=== PATIENT | male | born 1940 | race Caucasian/White ===

== ENCOUNTER 2020-01-18 22:01 | Emergency (ER) | payer MEDICARE, SELFPAY ==
--- NOTE | ~2020-01-18 | XR_ITS ---
EXAMINATION: XR chest 2V DATE: 01/18/2020 23:12 INDICATION: Right-sided chest pain. TECHNIQUE: PA and lateral views of the chest were obtained. COMPARISON: Chest radiograph dated 06/08/[address] abdomen and pelvis dated 12/03/2015 FINDINGS: Unchanged mild linear discoid atelectasis/scarring in the lingula and right middle lobe. No new airsp apoorva opacities, pulmonary edema, pleural effusion or pneumothorax. The cardiomediastinal silhouette is normal. Old healed left clavicle fracture. Relatively recent-appearing minimally displaced fracture of the anterior right ninth rib. IMPRESSION: 1. No acute cardiopulmonary disease. 2. Relatively recent-appearing anterior right ninth rib fracture. Reviewed, dictated and finalized at location A.
--- NOTE | 2020-01-18 22:04 | ECG_ITS ---
Measurements Intervals [place] Rate: 65 P: 54 MI: 220 QRS: -24 QRSD: 127 T: 60 QT: 376 QTc: 392 Interpretive Statements SINUS RHYTHM WITH FIRST DEGREE AV BLOCK INTRAVENTRICULAR CONDUCTION DELAY LEFT VENTRICULAR HYPERTROPHY WITH ST-T CHANGE INFERIOR INFARCT, AGE INDETERMINATE BORDERLINE T WAVE ABNORMALITY- LATERAL LEADS BASELINE WANDER- I, II, AVR, AVL, AVF, V4-V6 ABNORMAL ECG Electronically Signed On 01-19-2020 10:43:29 CDT by Denis Shin D.O.
[2020-01-18 22:06] VITALS: BP 190/87; PULSE 65; RESP 20; TEMP 36.4; O2SAT 98; O2SAT 99
[2020-01-18] MEDS: ASPIRIN 81 MG CHEWABLE TABLET 324 MG PO (22:31)
--- NOTE | 2020-01-18 22:32 | ED.CHESTPAIN ---
HPI - Chest Pain General Chief Complaint: Chest Pain Stated Complaint: irreg heart beat Time Seen by Provider: 01/18/20 22:16 Source: patient Mode of arrival: ambulatory Limitations: no limitations History of Present Illness HPI narrative: Patient is a 79-year-old male who presents to the emergency department with complaint of chest pain and palpitations. Patient had onset of right-sided chest pain that he states lasted only a few seconds and then subsided located in the right chest. Patient is unable to describe it any further than to state it was a pain . Patient is more concerned with the irregular heartbeat that he has been noticing. Patient states this is been going on for couple of months and was noted by his primary care physician on his last office visit. Patient states he has been referred to cardiology but his appointment has been put off due to the coronavirus pandemic. Patient states he feels his heart skipping beats at times. Patient denies any associated symptoms with the very brief episode of chest pain that he had. Patient has a remote history of coronary disease with stent placement. He denies any exertional symptoms or limitations and denies any chest pain or shortness of breath with activities. MD complaint: chest pain Pertinent past history: coronary artery disease Onset (ago): minute(s) Timing of current episode: now resolved (Lasted a couple of seconds) Onset: during rest Pain location: right chest Pain radiation: none Severity: mild Pain scale (0-10): 2 Quality: other ( pain ) Relieving factors: nothing Exacerbating factors: nothing Associated symptoms: palpitations Treatment prior to arrival: none Related Data Home Medications Medication Instructions Recorded Confirmed acetaminophen 500 mg capsule 500 mg PO Q6H PRN 10/31/19 lisinopril 20 mg tablet 20 mg PO DAILY 10/31/19 Allergies Allergy/AdvReac Type Severity Reaction Status Date / Time No Known Allergies Allergy Verified 01/18/20 22:15 Review of Systems Review of Systems: All systems reviewed & are unremarkable except as noted in HPI and below Cardiovascular: Cardiovascular: Reports chest pain at rest, Denies chest pain with activity, Denies diaphoresis, Reports palpitations and Denies dyspnea Respiratory: Respiratory: Denies cough and Denies dyspnea Gastrointestinal: Gastrointestinal: Denies nausea and Denies vomiting [facility] Past Medical History Medical History Chronic left hip pain Coronary artery disease Hyperlipidemia Hypertension Normal colonoscopy GERARD (obstructive sleep apnea) Surgical History Surgical History History of colonoscopy History of coronary artery stent placement History of hernia repair Social History Social History Smoking status: Former smoker Second hand tobacco smoke exposure: No Smoking end date: 09/17/1962 Alcohol intake: never Substance use: never Substance use type: does not use Gender identity (if verbalized by the patient): Male Exam Const: General: cooperative, no acute distress and alert Nutritional Appearance: well nourished Orientation/consciousness: patient oriented x3 Limitations: no limitations HENMT: Mouth: Yes lip normal and Yes moist mucous membranes Resp: Effort & Inspection: normal respiratory effort Auscultation: clear to auscultation bilaterally Cardio: Rate: regular rate Rhythm: regular rhythm GI: GI Palp: Yes Soft to palpation and No Tenderness to palpation present (GI) Auscultation: normal bowel sounds Skin: General skin exam: normal color and no rashes or lesions noted Neuro: General: patient oriented x3 Cognition (Neuro): normal cognition Speech: normal speech Extrem: General: normal to inspection, full ROM and no clubbing, cyanosis or edema Psych: Mental Status: men
[2020-01-18 22:37] LABS: Basophils Percent Auto 0.5 % (0.2-1.2); Eosinophils Absolute Auto 0.3 K/mm3 (0-0.3); Eosinophils Percent Auto 5.4 % (0-4.4); Hemoglobin 15.1 g/dL (14.0-18.0); Immature Granulocyte Absolute 0.02 K/mm3 (0.00-0.031); Immature Granulocyte Percent A 0.3 % (0-0.5); Lymphocytes Absolute Auto 2.16 K/mm3 (0.9-3.2); Lymphocytes Percent Auto 35.3 % (18.3-44.2); Mean Corpuscular HGB Conc 36.8 g/dl (32-36); Mean Corpuscular Hemoglobin 34.1 pg (26-34); Mean Corpuscular Volume 92.6 fl (80-100); Mean Platelet Volume 9.5 fl (7.4-10.4); Monocytes Absolute Auto 0.5 K/mm3 (0.1-0.6); Monocytes Percent Auto 7.5 % (2.6-8.5); Neutrophils Absolute Auto 3.1 K/mm3 (1.3-6.7); Platelet Count Result 130 k/mm3 (150-375); Red Blood Count 4.43 M/mm3 (4.6-6.20); Red Cell Distribution Width 12.3 % (11.5-14.5); White Blood Count 6.1 K/mm3 (4.5-10.0)
[2020-01-18 22:46] LABS: INR 0.9; Prothrombin Time 12.2 Seconds (11.1-14.7)
[2020-01-18 22:47] LABS: Partial Thromboplastin Time 25.1 SECONDS (22.3-36.8)
[2020-01-18 22:49] LABS: Blood Urea Nitrogen 18 mg/dL (9-20); Calcium 8.7 mg/dL (8.4-10.2); Carbon Dioxide 22 mmol/L (22-30); Chloride 106 mmol/L (98-107); Estimated CRCL calculation 56 ml/min; Estimated Glomerular Filt Rate > 60; Glucose 213 mg/dL (75-110); Magnesium 1.7 mg/dL (1.6-2.3); Potassium 3.8 mmol/L (3.4-5.0); Sodium 137 mmol/L (137-145)
[2020-01-18 23:01] LABS: Troponin I 0.022 ng/mL (0.000-0.034)
[2020-01-18 23:19] VITALS: BP 178/84; PULSE 60; RESP 20; O2SAT 96
[2020-01-19 00:26] VITALS: BP 154/79; PULSE 56; RESP 18; O2SAT 96
[2020-01-19 01:31] LABS: Troponin I 0.018 ng/mL (0.000-0.034)
[2020-01-19 01:50] VITALS: BP 146/72; PULSE 60; RESP 16; O2SAT 97
== END 2020-01-19 01:52 | disposition home or self-care (01) ==
PROVIDERS: Emergency Provider Emergency Medicine; PCP Family Medicine
DX: R07.89 Other chest pain (principal); I49.3 Ventricular premature depolarization; I25.10 Atherosclerotic heart disease of native coronary artery without angina pectoris; E78.5 Hyperlipidemia, unspecified; I10 Essential (primary) hypertension; G47.33 Obstructive sleep apnea (adult) (pediatric); Z95.5 Presence of coronary angioplasty implant and graft; Z87.891 Personal history of nicotine dependence; I44.0 Atrioventricular block, first degree; I45.9 Conduction disorder, unspecified; I51.7 Cardiomegaly; R94.31 Abnormal electrocardiogram [ECG] [EKG]
CPT/HCPCS: 36415; 71046; 80048; 83735; 84443; 84484; 85025; 85610; 85730; 93005; 99284; A9270

== ENCOUNTER 2020-02-04 09:46 | Outpatient (CLI) | payer MEDICARE, SELFPAY ==
--- NOTE | 2020-02-04 11:25 | EST_ITS ---
Patient Info Name: Shiva Parker Age: 79 years : 1940 Gender: Male Ht: 67 in Wt: 175 lbs BSA: 1.95 m2 BP: 141 / 81 mmHg Exam Date: 02/04/2020 11:31 AM Exam Location: [facility] Patient Status: Outpatient Admit Date: 02/04/2020 Staff Ordering Physician: Denis Shin DO Electric Motor Tester: Jay Jay Colindres RDCS, Attending Provider: Denis Shin DO Referring Physician: Kip CLARKE; Exercise Technologist: Jay Jay Colindres RDCS, RT Exercise Physician: Denis Shin DO Exam Type: CA stress echo Study Info Indications I23.8 - Other current complications following acute myocardial infarction Treadmill exercise stress echocardiogram is performed. Summary 1. 1. Negative Josh exercise stress test for ischemic ST changes by ECG criteria. 2. 2. Good functional capacity, achieving 9 METs of workload. 3. 3. Baseline hypertension. 4. 4. Appropriate HR response to exercise. 5. 5. Appropriate HR recovery at 1 minute post exercise. 6. 6. Negative stress echocardiogram for ischemia by wall motion analysis. 7. 7. Patient informed of the above results. Stress Echo Findings Left Ventricle Appropriate increase in LV endocardial thickening with systole. Appropriate augmentation of contractility with systole. No wall motion abnormality. Left Ventricle Normal LV systolic function. Mild inferior wall hypokinesis. Protocol: Josh Rest HR: 55 bpm Peak HR: 121 bpm Rest Sys BP: 141 mmHg Peak Sys BP: 208 mmHg Max Pred HR: 142 bpm % Max Pred HR: 85 % Target HR: 121 bpm Max RPP: 25,168 bpm*mmHg Termination Reason: Reached target heart rate or workload Cardiac Symptoms: Shortness of breath Total Time: 7 min : 24 sec Rest Browne BP: 81 mmHg Peak Browne BP: 89 mmHg Total METS: 9.5 Resting ECG Normal sinus rhythm. Sinus rhythm, first degree AV block, borderline T wave in anterolateral leads. Stress ECG No ST changes. Arrhythmias Intermittent PVC's at peak exercise. Report Signatures Stress ECG Echo
== END 2020-02-04 09:47 | disposition home or self-care (01) ==
PROVIDERS: PCP Family Medicine; Visit Provider Internal Medicine Cardiovascular Disease
DX: I25.10 Atherosclerotic heart disease of native coronary artery without angina pectoris (principal)
CPT/HCPCS: 93351

== ENCOUNTER 2020-09-21 09:15 | Outpatient (CLI) | payer MEDICARE, SELFPAY ==
--- NOTE | 2020-10-28 15:48 | WPDHOMESLEEP ---
Sleep Study - Home Unattended Date of Study: 09/21/20 Ordering Provider: Ebony Sosa MD Interpreting Physician: Polly Lackey MD Home Sleep Study Type: Apnea Link Air Height: 1.7 m Weight: 74.843 kg Body Mass Index: 25.8 Neck Circumference (inches): 15.4 [place]: 4 Reason for Sleep Study History of GERARD with a split night study12/03/2012; BMI was 27.4; AHI 18 with optimal pressure 11 cm; now has palpitations and excessive daytime sleepiness Sleep History Shiva Parker is a 80-year-old man with a history of obstructive sleep apnea in 2012 when his BMI was 27.4. He was coronary artery disease, OR and stent placed in 2005. He was referred by his primary care physician. Doctor Kip noted that the patient has palpitations and daytime somnolence with a history of loud snoring. He does not have trouble sleeping with a cold. He does not wake up gasping for breath at night. He frequently has breathing problems at night observed by others. He does not sweat excessively at night. He occasionally notices his heart pounding or beating irregularly at night. He does not fall asleep during the day, does not fall asleep involuntarily or while dry heaving, does not fall asleep while exerting physical effort. He does not have loss of muscle tone with strong emotion. He does not have daytime difficulties due to excessive sleepiness. He does not feel paralyzed on waking or falling asleep and does not have vivid dream like scenes upon awakening or falling asleep. He is not afraid to go to sleep. He does not have nightmares. He rarely remembers his dreams. He frequently has racing thoughts. He does not feel sad or depressed. He rarely has anxiety. He does not have muscular tension. He occasionally notices parts of his body jerking. He does not kick during the night. He occasionally has crawling and aching feelings in his legs at night. He rarely has leg pain during the night. He does not have morning jaw pain and does not grind his teeth during sleep. He rarely is bothered by pain during the day. He never is awakened by pain at night, rarely wakes up feeling stiff in the morning with sore achy muscles. He does not wake up with pain in the neck and spine. He has memory problems. Normal bedtime is 9:00 p.m. falling asleep within 15 minutes typically waking twice at night. He will roll over and go back to sleep. He stays awake about 15 minutes when he wakes up. He wakes in the morning at 5:00 a.m.. The weekend schedule is the same. He may stay in bed for 2 or 3 hours after waking. He does not take naps in the afternoon or evening. A short 10-15 minute nap is not refreshing. He is usually awakens feeling refreshed in the morning. Habits: Smoked tobacco years ago. Caffeine; 3 sodas a day. No alcohol or recreational drugs. [facility] Past Medical History Medical History (Updated 10/28/20 @ 16:12 by Polly Lackey MD) Arthritis BMI 25.0-25.9,adult Chronic left hip pain Coronary artery disease Hyperlipidemia Hypertension Normal colonoscopy GERARD (obstructive sleep apnea) (12/03/12) Osteoarthritis of hips, bilateral Surgical History Surgical History (Updated 10/28/20 @ 15:57 by Polly Lackey MD) History of cataract surgery History of colonoscopy History of coronary artery stent placement History of hernia repair Family History Family History Father Hypertension Sibling Hypertension Other Family history of cardiovascular disease Social History Social History Smoking status: Former smoker Second hand tobacco smoke exposure: No Smoking end date: 09/17/1962 Alcohol intake: never Substance use: never Substance use type: does not use Gender identity (if verbalized by the patient): Male Medications Home Medications Medication Instructions Recorded Confirmed Type metoprolol succinate 25 mg 12.5 mg PO
[2020-10-28 16:25] VITALS: BMI 25.8
== END 2020-09-21 09:16 | disposition home or self-care (01) ==
LOC: ANHCSM 09:16
PROVIDERS: PCP Physician Assistant; Visit Provider Family Medicine
DX: G47.33 Obstructive sleep apnea (adult) (pediatric) (principal); R94.31 Abnormal electrocardiogram [ECG] [EKG]; I10 Essential (primary) hypertension; G47.19 Other hypersomnia; I25.10 Atherosclerotic heart disease of native coronary artery without angina pectoris
CPT/HCPCS: 95806

== ENCOUNTER 2020-11-24 07:59 | Outpatient (CLI) | payer MEDICARE, SELFPAY ==
[2020-11-24 09:26] LABS: Basophils Percent Auto 0.7 % (0.2-1.2); Eosinophils Absolute Auto 0.3 K/mm3 (0-0.3); Eosinophils Percent Auto 5.8 % (0-4.4); Hematocrit 46.1 % (42.0-52.0); Hemoglobin 16.6 g/dL (14.0-18.0); Immature Granulocyte Absolute 0.03 K/mm3 (0.00-0.031); Immature Granulocyte Percent A 0.5 % (0-0.5); Lymphocytes Absolute Auto 1.49 K/mm3 (0.9-3.2); Lymphocytes Percent Auto 26.9 % (18.3-44.2); Mean Corpuscular Hemoglobin 34.2 pg (26-34); Mean Corpuscular Volume 95.1 fl (80-100); Mean Platelet Volume 9.4 fl (7.4-10.4); Monocytes Absolute Auto 0.4 K/mm3 (0.1-0.6); Monocytes Percent Auto 6.9 % (2.6-8.5); Neutrophils Absolute Auto 3.3 K/mm3 (1.3-6.7); Neutrophils Percent Auto 59.2 % (45.5-73.1); Platelet Count Result 140 k/mm3 (150-375); Red Blood Count 4.85 M/mm3 (4.6-6.20); Red Cell Distribution Width 12.1 % (11.5-14.5); White Blood Count 5.5 K/mm3 (4.5-10.0)
[2020-11-24 09:33] LABS: Urine Cotinine NEGATIVE
[2020-11-24 09:56] LABS: Albumin Level 4.5 g/dL (3.5-5.1); Estimated Glomerular Filt Rate > 60; Glucose 181 mg/dL (75-110)
[2020-11-24 11:24] LABS: Hemoglobin A1C 7.5 % (<5.7)
== END 2020-11-24 08:00 | disposition home or self-care (01) ==
PROVIDERS: PCP Physician Assistant; Visit Provider Orthopaedic Surgery
DX: Z01.818 Encounter for other preprocedural examination (principal); M16.12 Unilateral primary osteoarthritis, left hip; E11.65 Type 2 diabetes mellitus with hyperglycemia
CPT/HCPCS: 80307; 82040; 82565; 82947; 83036; 85025; 86850; 86900; 86901; 87081

== ENCOUNTER 2021-03-02 06:37 | Outpatient (CLI) | payer MEDICARE, SELFPAY ==
[2021-03-02 07:57] LABS: Hemoglobin A1C 6.3 % (<5.7)
[2021-03-02 08:01] LABS: Anion Gap 9 mmol/L (8-16); Blood Urea Nitrogen 29 mg/dL (9-20); Calcium 9.3 mg/dL (8.4-10.2); Carbon Dioxide 25 mmol/L (22-30); Chloride 107 mmol/L (98-107); Estimated Glomerular Filt Rate > 60; Glucose 130 mg/dL (75-110); Potassium 4.8 mmol/L (3.4-5.0); Sodium 141 mmol/L (137-145)
== END 2021-03-02 06:38 | disposition home or self-care (01) ==
PROVIDERS: PCP Physician Assistant; Visit Provider Physician Assistant
DX: E11.65 Type 2 diabetes mellitus with hyperglycemia (principal)
CPT/HCPCS: 36415; 80048; 83036

== ENCOUNTER 2021-03-02 13:32 | Outpatient (CLI) | payer MEDICARE, SELFPAY ==
--- NOTE | 2021-03-02 13:46 | ECHO_ITS ---
Patient Info Name: Shiva Parker Age: 80 years : 1940 Gender: Male Ht: 67 in Wt: 156 lbs BSA: 1.84 m2 HR: 64 bpm BP: 139 / 72 mmHg Heart Rhythm: Sinus Rhythm Exam Date: 03/02/2021 2:03 PM Exam Location: [facility] Patient Status: Outpatient Admit Date: 03/02/2021 Staff Ordering Physician: Denis Shin DO Photographic Equipment Technician: Caitlin Quinones RDCS Attending Provider: Denis Shin DO Referring Physician: Kip CLARKE; Exam Type: CA echo doppler color flow Study Info Indications I73.9 - Peripheral vascular disease, unspecified Complete two-dimensional, color flow and Doppler transthoracic echocardiogram is performed. Summary 1. Complete two-dimensional, color flow and Doppler transthoracic echocardiogram is performed. 2. Left ventricular chamber dimension is normal. 3. Left ventricular systolic function is normal, estimated at 65-70%. 4. There is mildly increased left ventricular wall thickness. 5. The left ventricular diastolic function is grade I diastolic dysfunction. 6. E/e' 5 is not elevated. 7. Left atrial chamber dimension is mildly enlarged. 8. There is trace aortic valve regurgitation. 9. There is trace mitral valve regurgitation. 10. There is trace tricuspid valve regurgitation. 11. No pulmonary hypertension, estimated pulmonary arterial systolic pressure is 27 mmHg. 12. There is trace pulmonic regurgitation. Left Ventricle E/e' 5 is not elevated. Left ventricular chamber dimension is normal. Left ventricular systolic function is normal, estimated at 65-70%. There is mildly increased left ventricular wall thickness. The left ventricular diastolic function is grade I diastolic dysfunction. Right Ventricle Right ventricular systolic function is normal and with normal TAPSE 1.9 cm. Right ventricular chamber dimension is normal. Left Atria Left atrial chamber dimension is mildly enlarged. Right Atria Right atrial chamber dimension is normal. Aortic Valve The aortic valve is trileaflet. There is no aortic valve stenosis. There is trace aortic valve regurgitation. Pulmonic Valve There is trace pulmonic regurgitation. Mitral Valve There is no mitral valve stenosis. There is trace mitral valve regurgitation. Tricuspid Valve There is trace tricuspid valve regurgitation. No pulmonary hypertension, estimated pulmonary arterial systolic pressure is 27 mmHg. Pericardium/Pleural There is no pericardial effusion. Inferior Vena Cava Normal inferior vena cava with >50% collapse upon inspiration consistent with normal right atrial pressure, 5 mmHg. Aorta The aortic root size at the sinus of Valsalva is normal. Left Ventricular Outflow Tract Name Value Normal LVOT 2D LVOT Diameter 2.1 cm LVOT Doppler LVOT Peak Gradient 4 mmHg LVOT Mean Gradient 2 mmHg LVOT VTI 22 cm LVOT VTI/AV VTI Ratio 0.8 LVOT Stroke Volume 77 ml LVOT CO 3.8 l/min LVOT CI 2.1 l/
== END 2021-03-02 13:33 | disposition home or self-care (01) ==
PROVIDERS: PCP Physician Assistant; Visit Provider Internal Medicine Cardiovascular Disease
DX: I73.9 Peripheral vascular disease, unspecified (principal); I10 Essential (primary) hypertension
CPT/HCPCS: 36415; 80048; 83036; 93306

== ENCOUNTER 2021-03-06 03:18 | Emergency (ER) | payer MEDICARE, SELFPAY ==
[2021-03-06 03:24] VITALS: BP 150/80; PULSE 59; RESP 16; TEMP 36.7; O2SAT 99
[2021-03-06] MEDS: DACRIOSE EYE IRRIGATION 118 ML BOTTLE LEFT EYE (04:04)
[2021-03-06] MEDS: TETRACAINE HCL 0.5% OPHTH SOLN 4 ML BTL 1 DROP LEFT EYE (04:05)
[2021-03-06] MEDS: FLUORESCEIN SOD 1 MG/STRIP LEFT EYE (04:05)
--- NOTE | 2021-03-06 04:09 | ED.EYEPROB ---
HPI - Eye Problem General Chief complaint: Eye Problems Stated complaint: Left eye pain Time Seen by Provider: 03/06/21 03:25 History of Present Illness HPI Narrative: Patient is a 80-year-old male who presents ER with left eye pain. He was grinding door way earlier in the day when something got in his eye. He has had irritation since then with mild blurring of vision. No drainage. Mild tearing. Related Data Allergies Allergy/AdvReac Type Severity Reaction Status Date / Time No Known Allergies Allergy Verified 02/10/21 10:18 Review of Systems Eyes: Eyes: Reports change in vision and Denies photophobia ENT: Denies nasal congestion and Denies sore throat PMFSH Past Medical History Medical History Arthritis BMI 25.0-25.9,adult Chronic left hip pain Coronary artery disease Hyperlipidemia Hypertension Normal colonoscopy GERARD (obstructive sleep apnea) (12/03/12) Osteoarthritis of hips, bilateral Surgical History Surgical History History of cataract surgery History of colonoscopy History of coronary artery stent placement History of hernia repair Family History Family History Father Hypertension Sibling Hypertension Other Family history of cardiovascular disease Social History Social History Smoking packs per day: 1 Smoking cigarettes per day: 20.0 Years smoked: 10 Smoking pack-years: 10.00 Smoking status: Former smoker Tobacco type: cigarettes Second hand tobacco smoke exposure: No Smoking end date: 09/17/1962 Additional smoking assessment comments: DENIES ANY FORM OF TOBACCO USE Alcohol intake: never Substance use: never Substance use type: does not use Gender identity (if verbalized by the patient): Male Spiritual care concerns: No Exam Narrative: Exam Narrative: GENERAL: Well-appearing, well-nourished, and in no acute distress. HEAD: Normocephalic, atraumatic. EYES: PERRL and EOMI. left eye viewed with magnification with small metallic foreign body in central aspect of cornea. ENT: Mucous membranes moist. NEURO: Alert and oriented x3. PSYCH: Normal mood and affect. Course Course Emergency Course: Foreign body removed. Small abrasion left. Discharge with topical antibiotic. Vital Signs Vital signs: Vital Signs Temperature 98.0 F 03/06/21 03:24 Pulse Rate 59 L 03/06/21 03:24 Respiratory Rate 16 03/06/21 03:24 Blood Pressure 150/80 H 03/06/21 03:24 Pulse Oximetry 99 03/06/21 03:24 Temperature 98.0 F 03/06/21 03:24 Pulse Rate 59 L 03/06/21 03:24 Respiratory Rate 16 03/06/21 03:24 Blood Pressure 150/80 H 03/06/21 03:24 Pulse Oximetry 99 03/06/21 03:24 Procedures FB Removal Eye Foreign Body #1: Foreign Body Removal Date: 03/06/21 Foreign Body Removal Time: 04:00 Time Out performed: No Location: eye (L) Topical anesthetic used: tetracaine Foreign body: metal Evidence of corneal penetration: No Technique: syringe and eye wash bottle Procedure performed under: direct visualization with magnification and slit-lamp Post-procedure medication: ophthalmic antibiotic Patient tolerated procedure: well and no complications Discharge Plan Discharge Clinical Impression: Eye foreign body, Abrasion, corneal Patient Disposition: Home, Self-Care Condition: Stable Instructions: Antibiotic Form, Corneal Abrasion (ED) Additional Instructions: Apply the topical antibiotic to prevent infection. Return the ER if you have increased pain, you cannot see, you have additional concerns. Prescriptions: New erythromycin 5 mg/gram (0.5 %) ointment 0.5 inch EACH EYE QID Qty: 1 RF: 0 No Action metoprolol succinate 25 mg tablet
[2021-03-06 04:22] VITALS: BP 142/76; PULSE 62; RESP 19; O2SAT 100
== END 2021-03-06 04:24 | disposition home or self-care (01) ==
PROVIDERS: Emergency Provider Emergency Medicine; PCP Physician Assistant
DX: T15.02XA Foreign body in cornea, left eye, initial encounter (principal); I25.10 Atherosclerotic heart disease of native coronary artery without angina pectoris; E78.5 Hyperlipidemia, unspecified; I10 Essential (primary) hypertension; G47.33 Obstructive sleep apnea (adult) (pediatric); M16.0 Bilateral primary osteoarthritis of hip; Z98.49 Cataract extraction status, unspecified eye; Z95.5 Presence of coronary angioplasty implant and graft; Z87.891 Personal history of nicotine dependence; W31.1XXA Contact with metalworking machines, initial encounter
CPT/HCPCS: 99283; A9270

== ENCOUNTER 2021-08-23 09:50 | Outpatient (CLI) | payer MEDICARE, SELFPAY ==
--- NOTE | 2021-09-12 17:27 | WPDSLEEPSTUD ---
Sleep Study Date of Study: 08/23/21 <Sarah Shaver DO - Last Filed: 09/12/21 17:53> Ordering Provider: Denis Shin DO <Sarah Shaver, DO - Last Filed: 09/12/21 17:53> Interpreting Physician: Sarah Shaver DO <Sarah Shaver DO - Last Filed: 09/12/21 17:53> Sleep Study Type: CPAP Titration <Sarah Shaver DO - Last Filed: 09/12/21 17:53> Height: 1.7 m <Sarah Shaver DO - Last Filed: 09/12/21 17:53> Weight: 74.843 kg <Sarah Shaver DO - Last Filed: 09/12/21 17:53> Body Mass Index: 25.8 <Sarah Shaver DO - Last Filed: 09/12/21 17:53> Neck Circumference (inches): 15.5 <Sarah Shaver DO - Last Filed: 09/12/21 17:53> [place]: 1 <Sarah Shaevr DO - Last Filed: 09/12/21 17:53> Reason for Sleep Study The patient had a HSAT on 09/21/20 that showed an AHI of 14 with Дмитрий-Mckeon respirations present on 7% of the study. <Sarah Shaver DO - Last Filed: 09/12/21 17:53> Sleep History Shiva Parker is a 81-year-old man with a history of obstructive sleep apnea in 2012 when his BMI was 27.4. He was coronary artery disease, ID and stent placed in 2005. He was referred by his primary care physician. Dr. Shin noted that the patient has palpitations and daytime somnolence with a history of loud snoring. He does not have trouble sleeping with a cold. He does not wake up gasping for breath at night. He frequently has breathing problems at night observed by others. He does not sweat excessively at night. He occasionally notices his heart pounding or beating irregularly at night. He does not fall asleep during the day, does not fall asleep involuntarily or while dry heaving, does not fall asleep while exerting physical effort. He does not have loss of muscle tone with strong emotion. He does not have daytime difficulties due to excessive sleepiness. He does not feel paralyzed on waking or falling asleep and does not have vivid dream like scenes upon awakening or falling asleep. He is not afraid to go to sleep. He does not have nightmares. He rarely remembers his dreams. He frequently has racing thoughts. He does not feel sad or depressed. He rarely has anxiety. He does not have muscular tension. He occasionally notices parts of his body jerking. He does not kick during the night. He occasionally has crawling and aching feelings in his legs at night. He rarely has leg pain during the night. He does not have morning jaw pain and does not grind his teeth during sleep. He rarely is bothered by pain during the day. He never is awakened by pain at night, rarely wakes up feeling stiff in the morning with sore achy muscles. He does not wake up with pain in the neck and spine. He has memory problems. Normal bedtime is 9:00 p.m. falling asleep within 15 minutes typically waking twice at night. He will roll over and go back to sleep. He stays awake about 15 minutes when he wakes up. He wakes in the morning at 5:00 a.m.. The weekend schedule is the same. He may stay in bed for 2 or 3 hours after waking. He does not take naps in the afternoon or evening. A short 10-15 minute nap is not refreshing. He is usually awakens feeling refreshed in the morning. Habits: Smoked tobacco years ago. Caffeine; 3 sodas a day. No alcohol or recreational drugs. <Sarah Shaver DO - Last Filed: 09/12/21 17:53> [facility] Past Medical History Medical History: Medical History (Updated 09/01/21 @ 21:53 by Ananya Morales MD) Arthritis BMI 25.0-25.9,adult Chronic left hip pain Coronary artery disease Erectile dysfunction Hyperlipidemia Hypertension Normal colonoscopy GERARD (obstructive sleep apnea) (12/03/12) Osteoarthritis of hips, bilateral <Sarah Shaver DO - Last Filed: 09/12/21 17:53> Surgical History Surgical History: Surgical History History o
[2021-09-12 17:45] VITALS: BMI 25.8
== END 2021-08-24 06:32 | disposition home or self-care (01) ==
LOC: ANHCSM 09:51
PROVIDERS: Visit Provider Internal Medicine Cardiovascular Disease
DX: G47.33 Obstructive sleep apnea (adult) (pediatric) (principal)
CPT/HCPCS: 95811

== ENCOUNTER 2021-09-07 07:41 | Outpatient (CLI) | payer MEDICARE, SELFPAY ==
[2021-09-07 08:30] LABS: Hematocrit 43.9 % (42.0-52.0); Hemoglobin 15.6 g/dL (14.0-18.0); Mean Corpuscular HGB Conc 35.5 g/dl (32-36); Mean Corpuscular Hemoglobin 34.6 pg (26-34); Mean Corpuscular Volume 97.3 fl (80-100); Mean Platelet Volume 9.6 fl (7.4-10.4); Platelet Count Result 121 k/mm3 (150-375); Red Blood Count 4.51 M/mm3 (4.6-6.20); Red Cell Distribution Width 12.3 % (11.5-14.5); White Blood Count 5.8 K/mm3 (4.5-10.0)
[2021-09-07 08:39] LABS: Cholesterol 147 mg/dL (0-200); HDL Direct 44 mg/dL; Triglycerides 133 mg/dL (<150)
[2021-09-07 08:43] LABS: Alanine Aminotransferase 20 U/L (4-50); Albumin Level 4.6 g/dL (3.5-5.1); Alkaline Phosphatase 67 U/L (38-126); Anion Gap 7 mmol/L (8-16); Aspartate Amino Transferase 26 U/L (17-59); Bilirubin,Total 0.8 mg/dL (0.2-1.3); Blood Urea Nitrogen 26 mg/dL (9-20); Calcium 9.6 mg/dL (8.4-10.2); Carbon Dioxide 27 mmol/L (22-30); Chloride 101 mmol/L (98-107); Estimated Glomerular Filt Rate 58; Glucose 133 mg/dL (65-110); Potassium 4.5 mmol/L (3.4-5.0); Sodium 135 mmol/L (137-145)
[2021-09-07 08:51] LABS: LDL Cholesterol Direct 69 mg/dL
[2021-09-07 09:11] LABS: Prostate Specific Antigen 2.9 ng/mL (< OR = 4.0)
[2021-09-07 09:47] LABS: Hemoglobin A1C 6.2 % (<5.7)
[2021-09-07 10:06] LABS: Creatinine Urine 134.3 mg/dL
[2021-09-07 10:09] LABS: Microalbumin Urine Random 72.5 mg/L (0-16.7)
== END 2021-09-07 07:42 | disposition home or self-care (01) ==
PROVIDERS: PCP Family Medicine; Visit Provider Internal Medicine Cardiovascular Disease
DX: R53.83 Other fatigue (principal); E78.5 Hyperlipidemia, unspecified; E11.9 Type 2 diabetes mellitus without complications; Z12.5 Encounter for screening for malignant neoplasm of prostate; E11.65 Type 2 diabetes mellitus with hyperglycemia; E03.9 Hypothyroidism, unspecified
CPT/HCPCS: 36415; 80053; 80061; 82043; 83036; 84153; 84443; 85027; G0103

== ENCOUNTER 2021-09-26 09:22 | Outpatient (CLI) | payer MEDICARE, SELFPAY ==
--- NOTE | 2021-09-26 10:37 | ECG_ITS ---
Measurements Intervals [place] Rate: 64 P: -30 NJ: 139 QRS: -20 QRSD: 113 T: 104 QT: 380 QTc: 393 Interpretive Statements SINUS RHYTHM VENTRICULAR PREMATURE COMPLEXES LEFT VENTRICULAR HYPERTROPHY AND ST-T CHANGE CONSIDER INFERIOR INFARCT, AGE INDETERMINATE BASELINE ARTIFACT- I, II, III, AVR, AVL, AVF ABNORMAL ECG Electronically Signed On 09-26-2021 11:45:57 SUPERINTENDENT RECREATION by Denis Shin D.O.
[2021-09-26 11:30] LABS: Basophils Percent Auto 0.5 % (0.2-1.2); Eosinophils Absolute Auto 0.4 K/mm3 (0-0.3); Eosinophils Percent Auto 5.6 % (0-4.4); Hematocrit 45.5 % (42.0-52.0); Hemoglobin 16.4 g/dL (14.0-18.0); Immature Granulocyte Absolute 0.03 K/mm3 (0.00-0.031); Immature Granulocyte Percent A 0.4 % (0-0.5); Lymphocytes Absolute Auto 1.73 K/mm3 (0.9-3.2); Lymphocytes Percent Auto 21.8 % (18.3-44.2); Mean Corpuscular Volume 94.4 fl (80-100); Mean Platelet Volume 9.3 fl (7.4-10.4); Monocytes Absolute Auto 0.5 K/mm3 (0.1-0.6); Monocytes Percent Auto 5.8 % (2.6-8.5); Neutrophils Absolute Auto 5.2 K/mm3 (1.3-6.7); Neutrophils Percent Auto 65.9 % (45.5-73.1); Platelet Count Result 140 k/mm3 (150-375); Red Blood Count 4.82 M/mm3 (4.6-6.20); Red Cell Distribution Width 11.8 % (11.5-14.5); White Blood Count 7.9 K/mm3 (4.5-10.0)
[2021-09-26 11:39] LABS: Urine Cotinine NEGATIVE
== END 2021-09-26 09:23 | disposition home or self-care (01) ==
LOC: ANHSURGERY 09:27
PROVIDERS: PCP Family Medicine; Visit Provider Orthopaedic Surgery
DX: M16.12 Unilateral primary osteoarthritis, left hip (principal); Z01.818 Encounter for other preprocedural examination; R94.31 Abnormal electrocardiogram [ECG] [EKG]
CPT/HCPCS: 80307; 85025; 87081; 93005

== ENCOUNTER 2021-10-10 00:46 | Day surgery (SDC) | payer MEDICARE, SELFPAY ==
[2021-09-26 10:03] VITALS: BP 156/77; PULSE 68; RESP 18; TEMP 36.9; O2SAT 99; BMI 25.0
--- NOTE | 2021-09-26 10:15 | PC.NURSE ---
Report to the Outpatient Waiting Room, entrance under the green pavilion located off [facility], at time ___6:00AM____ on date __10/10/21 . OR Time: ___7:30AM . - You and your visitor will be asked a series of questions to screen for COVID 19 for your protection. - A mask is required within the hospital. - Only one visitor is allowed at this time. Patient visitors will be guided where to wait when not with patient. Preoperative COVID Testing Requirements: No COVID Test needed if: (proof is required; if not received patient will have Rapid Test prior to entry) - Patient has received COVID Vaccine at least 14 days prior to procedure date or - Patient has positive COVID test result within last 90 days of surgery date. COVID Test needed if above criteria is not met If not COVID vaccinated a COVID test must be conducted within 72 hours of surgery and patient is asked to isolate self from time of testing until procedure. You will go to the [facility] for your COVID testing. The [facility] is located at the corner of [address] [facility]. You will only be called if COVID results are positive and your surgeon may reschedule your elective surgery date. Patients may have clear liquids (water, carbonated beverages, clear teas, apple juice) until 3 hours prior to surgery with a maximum of 20 ounces. - No food from midnight until time of surgery - Infants may have breast milk until 4 hours before surgery, infant formula 6 hours prior to surgery. - Children will be allowed to drink immediately following surgery. If applicable, please bring a bottle or sippy cup to assist with drinking. Juice, water, soda, and popsicles are readily available. For infants on formula, please bring formula the day of surgery. Pacifiers are allowed. Take the following medications with a SIP of water the morning of surgery: METOPROLOL Medications to discontinue per physician NONE Date to take last dose Please no make-up, nail spanish, hairspray, perfume, deodorant, or body powder the day of surgery. No jewelry (including any body piercings) or valuables the day of surgery, leave them at home. Please take a shower or bath the night before, or the morning of, surgery with an antibacterial soap. Wear comfortable, loose fitting clothing. Children are encouraged to wear pajamas. - Jewelry must be removed prior to entering the operating room. Rings and piercings that are not removed may be cut off. - The hospital will not accept responsibility for valuables. - Please leave all valuables, including medications, at home the day of surgery. If you are going home after surgery, a licensed xm1 tank driver must drive you home. - NO public transportation without another adult. - We recommend that an adult stay with you for 24 hours following discharge. - We also recommend that you do not drive, make important decision, drink alcoholic beverages, or take any drugs that were not prescribed by your health care provider for at least 24 hours after your discharge time. For Pediatric surgeries, we recommend two adults accompany the child home (only one inside the building at this time). Follow any additional instructions given to you from your surgeon. Telephone instructions given to ____PATIENT and asked if any additional questions and then verbalized understanding. Patient advised to call surgeon office or pre surgery nurse liaison [phone] if any additional questions.
--- NOTE | 2021-10-07 15:15 | WPDANESEPPF ---
Anes - Initial Pre Proc Eval Procedure: Operation Date: 10/10/21 07:30 Proposed Procedures p Left Total Hip Arthroplasty, Anterior Approach - Manuelito Moise MD Date/Time: 10/07/21 15:15 Surgeon: Manuelito Moise MD Pre Op Diagnosis: O A Left Hip Patient Data Age: 81 Gender: M Height: 1.7 m Weight: 72.4 kg Last Vital Signs Temp 36.9 C 09/26/21 10:03 Pulse 68 09/26/21 10:03 Resp 18 09/26/21 10:03 BP 156/77 H 09/26/21 10:03 Pulse Ox 99 09/26/21 10:03 Allergies Allergy/AdvReac Type Severity Reaction Status Date / Time No Known Allergies Allergy Verified 10/10/21 11:49 Home Medications Medication Instructions Recorded Confirmed Type metformin 500 mg tablet,extended 500 mg PO BID #180 tablet 11/29/20 10/10/21 Rx release 24 hr blood sugar diagnostic #50 ea 09/01/21 10/10/21 Rx blood-glucose meter #1 ea 09/01/21 10/10/21 Rx lancets #100 ea 09/01/21 10/10/21 Rx metoprolol succinate 25 mg 12.5 mg PO QAM tablet 09/01/21 10/10/21 History tablet,extended release 24 hr lisinopril [Zestril] 20 mg PO QAM 09/26/21 10/10/21 History lovastatin 40 mg PO QPM 09/26/21 10/10/21 History nabumetone 500 mg PO BID 09/26/21 10/10/21 History rivaroxaban 10 mg tablet 10 mg PO DAILY #14 tablet 09/27/21 10/10/21 Rx hydrocodone-acetaminophen 1 tablet PO Q6H PRN #21 tablet 10/11/21 Rx Other studies: Exam Date: 03/02/2021 2:03 PM Exam Location: [facility] Pulmonary Patient Status: Outpatient Admit Date: 03/02/2021 Staff Ordering Physician: Denis Shin DO Manager Plant: Caitlin Quinones RDCS Attending Provider: Denis Shin DO Referring Physician: Kip CLARKE; Exam Type: CA echo doppler color flow Study Info Indications I73.9 - Peripheral vascular disease, unspecified Complete two-dimensional, color flow and Doppler transthoracic echocardiogram is performed. Summary 1. Complete two-dimensional, color flow and Doppler transthoracic echocardiogram is performed. 2. Left ventricular chamber dimension is normal. 3. Left ventricular systolic function is normal, estimated at 65-70%. 4. There is mildly increased left ventricular wall thickness. 5. The left ventricular diastolic function is grade I diastolic dysfunction. 6. E/e' 5 is not elevated. 7. Left atrial chamber dimension is mildly enlarged. 8. There is trace aortic valve regurgitation. 9. There is trace mitral valve regurgitation. 10. There is trace tricuspid valve regurgitation. 11. No pulmonary hypertension, estimated pulmonary arterial systolic pressure is 27 mmHg. 12. There is trace pulmonic regurgitation. Patient hx anesthesia problems: none Family hx anesthesia problems: none Results Review: All pre-operative results and documents have been reviewed as part of the pre-operative evaluation. [facility] Past Medical History Medical History (Updated 10/11/21 @ 07:44 by VIDYA Hussein) Arthritis BMI 25.0-25.9,adult Cardiac arrhythmia Coronary artery disease Erectile dysfunction Hyperlipidemia Hypertension Obstructive sleep apnea (11/2012) Osteoarthritis of left hip Peripheral arterial disease Type 2 diabetes mellitus Surgical History Surgical History (Updated 10/11/21 @ 07:44 by VIDYA Hussein) History of cataract extraction with lens replacement History of colonoscopy History of coronary artery stent placement (2013) History of left hip replacement (10/10/21) History of left inguinal hernia repair (2015) Family History Family History Father Hypertension Sibling Hypertension Other Family history of cardiovascular disease Social History Social History (Updated 10/11/21 @ 00:18 by Ludmila Miller PA-C) Social History: Surrogate decision maker: Jensen Parker, son. Code status: Full code. Smoking packs per day: 1 Smoking cigarettes per day: 20.0
[2021-10-10] VITALS (12 sets, daily range): BP systolic 92–134; BP diastolic 41–74; PULSE 52–73; RESP 12–20; TEMP 36.1–37.5; O2SAT 95–100
--- NOTE | ~2021-10-10 | XR_ITS ---
EXAMINATION: XR hip LT min 2V, XR surgery orthopedic DATE: 10/10/2021 10:25 (accession [id number]), 10/10/2021 09:41 (accession [id number]) INDICATION: Left total hip arthroplasty TECHNIQUE: AP fluoroscopic view of the left hip intraoperatively and 2 views of the left hip postoper atively FINDINGS: Preliminary image demonstrates severe osteoarthritis of the left hip. Subsequent images dem onstrate a a left total hip arthroplasty in expected position. Subcutaneous gas with soft tissue swe lling are consistent with recent surgery. IMPRESSION: 1. Recent left total hip arthroplasty. Reviewed, dictated and finalized at location B[facility] IMPRESSION: 1. Recent left total hip arthroplasty.
[2021-10-10] MEDS: LACTATED RINGERS 1,000 ML 30 ML IV CONT ×2 (07:00→10:14)
[2021-10-10] MEDS: ACETAMINOPHEN 500 MG TABLET 1000 MG PO (07:00)
[2021-10-10 07:01] LABS: Glucose Point of Care 142 mg/dl (65-105)
[2021-10-10] MEDS: TRANEXAMIC ACID 1,000MG/ISO100 1,000 MG/100 ML BAG 200 MG IVPB (07:10)
--- NOTE | 2021-10-10 07:11 | WPDHPUPDATE1 ---
History and Physical Update Update Date/Time: 10/10/21 07:11 History and Physical has been reviewed, including an updated exam of the patient. There are NO changes in the patient's condition. Risks, benefits, and alternatives have been discussed and questions answered. Patient agrees to proceed with procedure.
[2021-10-10] MEDS: ceFAZolin 2 GM/D5W 50 ML 2 GM/50 ML BAG IVPB ×3 (07:34→23:06)
--- NOTE | 2021-10-10 10:19 | W.PM.PROC2 ---
Procedure Note - Detailed Date of Procedure 10/10/21 Pre-op Diagnosis OA Left Hip Post-op Diagnosis same Procedure Performed left hip replacement through an anterior approach with fluoroscopic assistance Surgeon Manuelito Moise MD Air Quality Specialist Stacy Lucas Anesthesia spinal Description of Procedure The patient was identified, proper side identified, and then taken to the operating room. After a spinal anesthetic was administered, he was then transferred over to the [place] table positioning supine in the usual manner for an anterior hip procedure. Positioning was assessed fluoroscopically after which the left hip and thigh was prepped and draped in the usual sterile fashion. 10 cc of the arthroplasty solution was injected into the subcutaneous tissue over the TFL muscle belly. Longitudinal incision was made over the muscle belly. Subcutaneous tissue was sharply dissected down to the TFL fascia which was incised in line with the fibers the TFL. The TFL was retracted laterally and the rectus femoris medially. The rectus fascia was divided. The branches of the anterior femoral circumflex artery were identified and cauterized allowing for access to the hip capsule. Pericapsular fatty tissue was removed. The capsule was divided in an inverted T-fashion. The neck cut was made one fingerbreadth above the level of the lesser trochanter. Head fragment was removed and the acetabulum cleared of debris. Acetabulum was sequentially reamed under fluoroscopic visualization up to 55 mm. A 56 G7 cup was inserted under fluoroscopic visualization in approximately 40? of abduction and 15? of anteversion following the patient's anatomy. It was further secured with a single screw and then the liner for the size 36 head was placed. The femur was then delivered up into the wound with the appropriate releases. The proximal femur was prepared for the size 12 high offset microplasty stem and a trial reduction was undertaken. Overall alignment was assessed fluoroscopically in the AP and lateral views noting it to be satisfactory. Trial components were removed. The wound was irrigated with pulsatile lavage. The real size 12 high offset micro plasty stem was then seated. This construct with a 36, minus three head gave excellent mu-ism of leg lengths and stability so the real 36, minus three head was attached to the neck of the femoral component after it had been cleaned and dried. Hip was again reduced and stability assessed, and it was noted to be stable. After final lavage of the wound, the periarticular tissues were injected with an additional 50 cc of the arthroplasty solution. 1 g of tranexamic acid was left in the wound. The capsule was reapproximated with #2 Vicryl suture, the TFL fascia with 0 looped PDS suture, the subcu with two of strata fix in the deeper layers and two of strata fix subcuticular stitch. Tissue adhesive was used for the skin. Sterile dressing was applied. He tolerated the procedure well. He was transferred back to a bed and taken to recovery area in stable condition. There were no known intraoperative complications. Estimated blood loss was 250 cc. He received 100 milliliters back via Cell Saver. He received perioperative antibiotics. Estimated Blood Loss 250 ( 100 back by Cell Saver) Drains No Packing No Pathology none sent Complications No immediate complications Condition stable Disposition PACU
[2021-10-10 10:29] LABS: Glucose Point of Care 164 mg/dl (65-105)
--- NOTE | 2021-10-10 11:13 | ADMGEN ---
This patient, Shiva Parker, was admitted to [facility] Surgery-[facility]. Patient oriented to hospital policies and general routines including ID bracelet, bed and alarms, visiting hours, pain management, procedures, bathroom and other care routines, personal items, smoking policy, room service/diet, and visiting hours. Information on how to activate the Rapid Response Team has been discussed. Patient encouraged to report perceived risks to care and to ask questions if they do not understand what they are told or what they should do.
[2021-10-10] MEDS: SODIUM CHLORIDE 0.9% IV 1,000 ML 125 ML IV CONT (11:30)
--- NOTE | 2021-10-10 12:43 | PCOTNOTE ---
Attempted OT evaluation, per RN due to spinal patient has limited sensation and is unable to move LE at this time, will evaluate when appropriate.
[2021-10-10 16:35] LABS: Glucose Point of Care 229 mg/dl (65-105)
[2021-10-10] MEDS: LOVASTATIN 20 MG TABLET 40 MG PO (17:23)
[2021-10-10] MEDS: SENNA/DOCUSATE SODIUM TABLET 2 TAB PO (17:23)
[2021-10-10] MEDS: metFORMIN HCL XR 500 MG TAB.SR.24H PO (17:23)
[2021-10-10] MEDS: HYDROcodone/acetaminophen (*CRX) 5-325 MG TABLET 1 TAB PO ×2 (17:23→21:42)
[2021-10-10] MEDS: FAMOTIDINE 20 MG TABLET PO (21:42)
[2021-10-10 21:54] LABS: Glucose Point of Care 191 mg/dl (65-105)
--- NOTE | 2021-10-10 22:00 | WPDCN ---
Assessment and Plan Assessment and plan (1) Osteoarthritis of left hip: Qualifiers: Osteoarthritis type: primary Qualified Code(s): M16.12 - Unilateral primary osteoarthritis, left hip Code(s): M16.12 - Unilateral primary osteoarthritis, left hip Status: Acute Assessment and Plan: Postoperative day 0, status post left hip replacement. Wound care, pain control, and DVT prophylaxis deferred to Dr. Moise. (2) Type 2 diabetes mellitus: Code(s): E11.9 - Type 2 diabetes mellitus without complications Status: Acute Assessment and Plan: Hemoglobin A1c was 6.2% in August 2021. Resume metformin on discharge. Initiate sliding scale insulin, Accu-Cheks, and hypoglycemic protocol. (3) Obstructive sleep apnea: Onset Date: 11/2012 Code(s): G47.33 - Obstructive sleep apnea (adult) (pediatric) Status: Acute Assessment and Plan: Not currently using a CPAP. (4) Primary hypertension: Code(s): I10 - Essential (primary) hypertension Status: Acute Assessment and Plan: Blood pressures were reviewed and they were initially a bit soft postoperatively but they have improved. Antihypertensives will be resumed, with parameters. Continue to monitor closely. (5) Coronary artery disease: Code(s): I25.10 - Atherosclerotic heart disease of burns paiute coronary artery without angina pectoris Status: Acute Assessment and Plan: No acute issues. Continue beta-lorri and statin. Additional Plan Thank you for allowing us to participate in this patient's care. Please do not hesitate to contact us with any questions. Supervising physician for this medical consultation is Dr. Indira Schwartz. The patient was considered same day surgery at the time of consultation. HPI Data of Consult Date/Time: 10/10/21 22:00 Requesting Physician: Manuelito Moise MD Primary Care Provider: Ananya Morales MD Consult Narrative Narrative: This is an 81-year-old male with diabetes, hypertension, and hyperlipidemia whom the hospitalist service has been consulted for management of his medical conditions postoperatively. He reports longstanding left hip pain with imaging that demonstrates severe left hip osteoarthritis. Unfortunately, conservative outpatient therapy has not provided him with longstanding benefit and he opted for replacement today. His surgery was performed under spinal anesthesia with no immediate complications documented an estimated blood loss of 250 mL, 100 mL returned via Cell Saver. Postoperatively he has done well and was up with PT without issue. He had a little nausea after surgery but has eaten without issue. Pain has been manageable. He denies fever, chills, sweats, chest pain, shortness of breath, and vomiting. No paresthesias, skin color, or temperature changes distal to the surgical site. Review of Systems Review of Systems: 12 systems were reviewed. No recent illnesses. No sick contacts. No history of DVT. Not good about checking his sugars. Awaiting CPAP to be delivered. Except as documented all other systems were reviewed and are negative. [facility] Past Medical History Medical History Arthritis BMI 25.0-25.9,adult Cardiac arrhythmia Coronary artery disease Erectile dysfunction Hyperlipidemia Hypertension Obstructive sleep apnea (11/2012) Peripheral arterial disease Type 2 diabetes mellitus Surgical History Surgical History (Updated 10/10/21 @ 23:30 by Ludmila Miller PA-C) History of cataract extraction with lens replacement History of colonoscopy History of coronary artery stent placement (2013) History of left hip replacement (10/10/21) History of left inguinal hernia repair (2015) Family History Family History Father Hypertension Sibling Hypertension Ot
[2021-10-10] MEDS: HYDROmorphone HCL INJ (*CRX) 1 MG/ML SYR 0.5 MG IV PUSH (23:06)
[2021-10-11 00:57] VITALS: BP 128/76; PULSE 78; RESP 16; TEMP 37.6; O2SAT 100
[2021-10-11] MEDS: HYDROcodone/acetaminophen (*CRX) 7.5-325 MG TABLET 2 TAB PO (02:14)
[2021-10-11 04:57] VITALS: BP 128/43; PULSE 67; RESP 18; TEMP 37.2; O2SAT 95
[2021-10-11 05:42] LABS: Hematocrit 33.2 % (42.0-52.0); Hemoglobin 11.8 g/dL (14.0-18.0); Mean Corpuscular HGB Conc 35.5 g/dl (32-36); Mean Corpuscular Hemoglobin 34.1 pg (26-34); Mean Platelet Volume 9.5 fl (7.4-10.4); Platelet Count Result 104 k/mm3 (150-375); Red Blood Count 3.46 M/mm3 (4.6-6.20); Red Cell Distribution Width 11.9 % (11.5-14.5); White Blood Count 9.9 K/mm3 (4.5-10.0)
[2021-10-11 05:51] LABS: Alanine Aminotransferase 17 U/L (4-50); Albumin Level 3.5 g/dL (3.5-5.1); Alkaline Phosphatase 55 U/L (38-126); Anion Gap 7 mmol/L (8-16); Aspartate Amino Transferase 31 U/L (17-59); Bilirubin,Total 0.5 mg/dL (0.2-1.3); Blood Urea Nitrogen 23 mg/dL (9-20); Calcium 8.3 mg/dL (8.4-10.2); Carbon Dioxide 23 mmol/L (22-30); Chloride 102 mmol/L (98-107); Estimated CRCL calculation 49 ml/min; Estimated Glomerular Filt Rate > 60; Glucose 185 mg/dL (65-110); Magnesium 1.6 mg/dL (1.6-2.3); Potassium 4.2 mmol/L (3.4-5.0); Sodium 132 mmol/L (137-145)
--- NOTE | 2021-10-11 07:41 | PM.DS ---
DS: Admitting Diagnosis Discharge Date 10/11/2021 Admitting Diagnosis Left hip osteoarthritis DS: Discharge Diagnosis Discharge Diagnosis (1) History of total left hip arthroplasty: Code(s): Z96.642 - Presence of left artificial hip joint Status: Acute Assessment and Plan: 81-year-old male postop day 1 after left hip total arthroplasty through anterior approach by Dr. Moise. Overall doing well is able to perform therapy yesterday. No new issues when seen this morning. He will follow up in our office in 2 weeks and was instructed to call the office with any questions. DS: Summary Hospital Course Reason for hospitalization: Observation after outpatient procedure Hospital Course: 81-year-old male admitted for observation after total left hip arthroplasty performed by Dr. Moise. Labs were drawn this morning. There was a drop in his hemoglobin but this is believed to be dilutional as he did not lose much blood during surgery. He will be seen by therapy prior to discharge. Status at Discharge Functional status at discharge: uses cane/walker Time Spent with Patient Time attestation: Total time spent providing and/or coordinating discharge services: Time spent: Less than 30 minutes Exam Const: General: comfortable and no acute distress Nutritional Appearance: well nourished (BMI 24.6) Resp: Effort & Inspection: normal respiratory effort GI: Inspection: non-distended GI Palp: No Tenderness to palpation present (GI) Extrem: Other: Exam of the left hip shows a clean and dry postsurgical dressing. No swelling or edema noted. The patient is able to wiggle his toes and extend the knee without issue. He denies any numbness or tingling in the leg or foot. Calves negative. Neurovascular status unremarkable. Psych: Mental Status: mental status grossly normal DS: Data Data Completed and Pending Labs on day of discharge: Labs from last 24 hours 10/11/21 10/11/21 10/10/21 05:31 05:31 21:45 WBC 9.9 RBC 3.46 L Hgb 11.8 L D Hct 33.2 L MCV 96.0 MCH 34.1 H MCHC 35.5 RDW 11.9 Plt Count 104 L MPV 9.5 Sodium 132 L Potassium 4.2 Chloride 102 Carbon Dioxide 23 Anion Gap 7 L BUN 23 H Creatinine 1.00 Estim Creat Clear Calc 49 Estimated GFR > 60 Glucose 185 H POC Capillary Glucose 191 H Calcium 8.3 L Magnesium 1.6 Total Bilirubin 0.5 AST 31 ALT 17 Alkaline Phosphatase 55 Total Protein 5.0 L Albumin 3.5 Blood Type Antibody Screen 10/10/21 10/10/21 10/10/21 16:09 10:26 06:49 WBC RBC Hgb Hct MCV MCH MCHC RDW Plt Count MPV Sodium Potassium Chloride Carbon Dioxide Anion Gap BUN Creatinine Estim Creat Clear Calc Estimated GFR Glucose POC Capillary Glucose 229 H 164 H Calcium Magnesium Total Bilirubin AST ALT Alkaline Phosphatase Total Protein Albumin Blood Type A Positive Antibody Screen Negative Discharge Plan Discharge Patient Disposition: Home, Self-Care Discharge Instructions: 3 times daily for 20 minutes each time, reclining in bed with ice packs over the incision and a pillow underneath the calf of the affected leg, not under the knee. Your wound is glued so it is okay to get into the shower and get the wound wet in two days. Be sure to read through all the information that came from a my office and the hospital. Most of the answers you will need can be found that material. Call the office with any questions that you cannot find answers to, or concerns you may have. After the Xarelto is completed, start taking one coated 325 mg aspirin daily and do this for four more weeks. Please call [facility] at as soon as possible to verify your follow-up appointment to be seen in 2 weeks. Also, call the office with any orthopedic/surgical related questions prior to follo
[2021-10-11] MEDS: ceFAZolin 2 GM/D5W 50 ML 2 GM/50 ML BAG IVPB (07:51)
[2021-10-11 08:00] VITALS: BP 128/98; PULSE 72; RESP 16; TEMP 36.6; O2SAT 97
[2021-10-11 09:02] LABS: Glucose Point of Care 165 mg/dl (65-105)
--- NOTE | 2021-10-11 09:33 | WPDANESPN ---
Anes - Prog Note Post-Op Date/Time: 10/11/21 09:34 Cardiovascular status: normal Respiratory status: normal Airway patency: baseline Mental status: baseline Post-Op hydration status: normal Vital Signs: Last Vital Signs Temp 36.6 C 10/11/21 08:00 Pulse 72 10/11/21 08:00 Resp 16 10/11/21 08:00 BP 128/98 H 10/11/21 08:00 Pulse Ox 97 10/11/21 08:00 Pain Score (VAS): 0 I/O: Intake & Output 10/10/21 10/11/21 10/11/21 23:59 07:59 15:59 Intake Total 1378 500 Balance 1378 500 Laboratory Tests 10/11/21 05:31 10/11/21 05:31 10/10/21 10/10/21 10/10/21 10:26 16:09 21:45 WBC RBC Hgb Hct MCV MCH MCHC RDW Plt Count MPV Sodium Potassium Chloride Carbon Dioxide Anion Gap BUN Creatinine Estim Creat Clear Calc Estimated GFR Glucose POC Capillary Glucose 164 H 229 H 191 H Calcium Magnesium Total Bilirubin AST ALT Alkaline Phosphatase Total Protein Albumin 10/11/21 10/11/21 10/11/21 05:31 05:31 07:53 WBC 9.9 RBC 3.46 L Hgb 11.8 L D Hct 33.2 L MCV 96.0 MCH 34.1 H MCHC 35.5 RDW 11.9 Plt Count 104 L MPV 9.5 Sodium 132 L Potassium 4.2 Chloride 102 Carbon Dioxide 23 Anion Gap 7 L BUN 23 H Creatinine 1.00 Estim Creat Clear Calc 49 Estimated GFR > 60 Glucose 185 H POC Capillary Glucose 165 H Calcium 8.3 L Magnesium 1.6 Total Bilirubin 0.5 AST 31 ALT 17 Alkaline Phosphatase 55 Total Protein 5.0 L Albumin 3.5 Post-procedural complaints: none Patient Feedback: Patient satisfied with anesthetic care.
--- NOTE | 2021-10-11 09:51 | PM.IMPN ---
Progress Note: A&P Assessment and Plan (1) Osteoarthritis of left hip: Qualifiers: Osteoarthritis type: primary Qualified Code(s): M16.12 - Unilateral primary osteoarthritis, left hip Code(s): M16.12 - Unilateral primary osteoarthritis, left hip Status: Inactive Assessment and Plan: Postoperative day 1, status post left hip replacement. Wound care, pain control, and DVT prophylaxis per Orthopedic\ Low-grade fever most likely related to surgery also encouraged incentive spirometry (2) Type 2 diabetes mellitus: Code(s): E11.9 - Type 2 diabetes mellitus without complications Status: Acute Assessment and Plan: Hemoglobin A1c was 6.2% in August 2021. Resume metformin on discharge. (3) Obstructive sleep apnea: Onset Date: 11/2012 Code(s): G47.33 - Obstructive sleep apnea (adult) (pediatric) Status: Acute Assessment and Plan: Not currently using a CPAP. (4) Primary hypertension: Code(s): I10 - Essential (primary) hypertension Status: Acute Assessment and Plan: Continue home medication (5) Coronary artery disease: Code(s): I25.10 - Atherosclerotic heart disease of cahto coronary artery without angina pectoris Status: Acute Assessment and Plan: No acute issues. Continue beta-lorri and statin. Additional Plan Subjective Date/time seen: 10/11/21 09:51 Interval history: Patient seen and examined Patient feels better today patient has episodes of low-grade fever resolved probably related to surgery Denies dysuria cough chest pain shortness of breath I am seeing the patient for diabetes Exam Narrative: Alert Chest no wheeze crackles Abdomen nontender nondistended CVS S1 + S2 Lower extremity edema Objective Data Vital Signs Vital Signs: Vital Signs - 24 hr 10/10/21 10:20 10/10/21 10:35 10/10/21 10:50 Temperature 97.4 F L Pulse Rate 52 L 55 L 53 L Respiratory Rate 16 13 12 Blood Pressure 109/41 L 98/47 L 92/53 L Pulse Oximetry 98 100 98 10/10/21 11:05 10/10/21 11:13 10/10/21 11:28 Temperature 97.2 F L 97 F L Pulse Rate 56 L 58 L 61 Respiratory Rate 18 16 16 Blood Pressure 95/66 L 129/46 L 115/45 L Pulse Oximetry 98 100 100 10/10/21 11:45 10/10/21 12:45 10/10/21 16:15 Temperature 97.1 F L 97 F L 98 F Pulse Rate 57 L 60 67 Respiratory Rate 14 14 16 Blood Pressure 129/59 L 120/57 L 131/58 L Pulse Oximetry 100 100 100 10/10/21 20:00 10/10/21 20:57 10/11/21 00:57 Temperature 99.5 F 99.7 F H Pulse Rate 73 73 78 Respiratory Rate 16 18 16 Blood Pressure 115/48 L 128/76 Pulse Oximetry 98 95 100 10/11/21 04:57 10/11/21 08:00 Temperature 98.9 F 98 F Pulse Rate 67 72 Respiratory Rate 18 16 Blood Pressure 128/43 L 128/98 H Pulse Oximetry 95 97 Intake/Output Intake/Output: Intake & Output 10/08/21 10/09/21 10/10/21 10/11/21 23:59 23:59 23:59 23:59 Intake Total 2818 500 Output Total 285 Balance 2533 500 Meds/Results Medications: Active Medications Generic Name Dose Route Start Last Admin Trade Name Freq PRN Reason Stop Dose Admin Acetaminophen 650 mg 10/10/21 11:12 Acetaminophen 325 Mg Tablet PO Q6H PRN Mild Pain (1-3) or Fever Hydrocodone Bitart/Acetaminophen 1 tab 10/10/21 11:12 10/10/21 21:42 Hydrocodone/Acetaminophen (*Crx) 5-325 Mg Tablet PO 1 tab Q3H PRN Administration Pain Rated 4-6 Hydrocodone Bitart/Acetaminophen 2 tab 10/10/21 11:12 10/11/21 02:14 Hydrocodone/Acetaminophen (*Crx) 7.5-325 Mg Tablet PO 2 tab Q6H PRN Administration Pain Rated 7-10 Al Hydrox/Mg Hydrox/Simethicone 30 ml 10/10/21 11:12 Mag Hydrox/Al Hydrox/Simeth 30 Ml Udc PO Q6H PRN Indigestion Dextrose 12.5 gm 10/10/21 23:34 Dextrose 50% 25 Gm/50 Ml Syringe IV PUSH PRN PRN Hypoglycemia Protocol Famotidine 20 mg 09/18
[2021-10-11 10:11] VITALS: PULSE 70
[2021-10-11] MEDS: METOPROLOL SUCCINATE EXT REL 12.5 MG TABCR PO (10:11)
[2021-10-11] MEDS: metFORMIN HCL XR 500 MG TAB.SR.24H PO (10:11)
[2021-10-11] MEDS: RIVAROXABAN 10 MG TABLET PO (10:11)
[2021-10-11] MEDS: SENNA/DOCUSATE SODIUM TABLET 2 TAB PO (10:11)
[2021-10-11] MEDS: FAMOTIDINE 20 MG TABLET PO (10:11)
[2021-10-11] MEDS: polyethylene glycoL 3350 17 GM POWD.PACK PO (10:12)
[2021-10-11] MEDS: lisinopriL 20 MG TABLET PO (10:12)
== END 2021-10-11 10:50 | disposition home or self-care (01) ==
LOC: ANHSURGERY 10:11 → ANHSUROVER 11:18
PROVIDERS: Physician Assistant; PCP Family Medicine; Visit Provider Orthopaedic Surgery
PROC: (CPT 27130; principal; 2021-10-10 07:30)
DX: M16.12 Unilateral primary osteoarthritis, left hip (principal); M25.552 Pain in left hip; I49.9 Cardiac arrhythmia, unspecified; I25.10 Atherosclerotic heart disease of native coronary artery without angina pectoris; E78.5 Hyperlipidemia, unspecified; I10 Essential (primary) hypertension; G47.33 Obstructive sleep apnea (adult) (pediatric); Z87.891 Personal history of nicotine dependence; Z79.84 Long term (current) use of oral hypoglycemic drugs; E11.9 Type 2 diabetes mellitus without complications; Z79.4 Long term (current) use of insulin
CPT/HCPCS: 27130; 36415; 73502; 80053; 80307; 82948; 83735; 85025; 85027; 86850; 86900; 86901; 87081; 93005; 97110; 97116; 97161; 97165; 97535; A9270; C1776; J0171; J0690; J1100; J1170; J2270; J2370; J2704; J2795; J3010; J7030; J7040; J7120

== ENCOUNTER 2022-01-04 10:47 | Emergency (ER) | payer MEDICARE, SELFPAY ==
[2022-01-04 10:59] VITALS: BP 141/65; PULSE 67; RESP 20; O2SAT 100
--- NOTE | 2022-01-04 11:17 | ED.WOUNDLAC ---
HPI - Wound/Laceration General Chief Complaint: Wound/Laceration Stated Complaint: STEPPED ON A NAIL Time Seen by Provider: 01/04/22 11:17 Source: patient Mode of arrival: ambulatory Limitations: no limitations History of Present Illness HPI narrative: 81-year-old male presents with puncture wound to left foot. Reports about 1 hour ago he stepped on a nail while outside, was wearing tennis shoes. States it barely poked me . Patient recently had a Tdap. Reports history of foot infection after stepping on a rock. Is diabetic and concern for similar infection. Patient ambulatory with steady gait. All systems reviewed and negative except as noted above. Related Data Home Medications Medication Instructions Recorded Confirmed lisinopril [Zestril] 20 mg PO QAM 09/26/21 12/06/21 lovastatin 40 mg PO QPM 09/26/21 12/06/21 aspirin 81 mg capsule 81 mg PO DAILY 12/06/21 12/06/21 Allergies Allergy/AdvReac Type Severity Reaction Status Date / Time No Known Allergies Allergy Verified 12/06/21 08:18 Review of Systems Review of Systems: CONSTITUTIONAL: Denies fever, chills, or sweats. EYES: Denies visual changes, redness, or discharge. ENT: Denies rhinorrhea, congestion, sore throat, or otalgia. CARDIOVASCULAR: Denies chest pain, palpitations, or edema. RESPIRATORY: Denies cough or dyspnea. GASTROINTESTINAL: Denies abdominal pain, nausea, vomiting, or diarrhea. GENITOURINARY: Denies dysuria or hematuria. SKIN: Denies rash or itching. Reports puncture wound to left foot. MUSCULOSKELETAL: Denies back pain, joint pain, or myalgia. NEUROLOGIC: Denies headache, numbness, or weakness. PSYCHIATRIC: Denies anxiety or depression. All other systems reviewed are negative, except as documented in HPI. [facility] Past Medical History Medical History Arthritis BMI 25.0-25.9,adult Cardiac arrhythmia Coronary artery disease Erectile dysfunction Hyperlipidemia Hypertension Obstructive sleep apnea (11/2012) Osteoarthritis of left hip Peripheral arterial disease Type 2 diabetes mellitus Surgical History Surgical History History of cataract extraction with lens replacement History of colonoscopy History of coronary artery stent placement (2013) History of left hip replacement (10/10/21) History of left inguinal hernia repair (2016) History of total left hip arthroplasty SABINO on 10/10/2021 - Anterior approach Family History Family History Father Hypertension Sibling Hypertension Other Family history of cardiovascular disease Social History Social History Social History: Surrogate decision maker: Jensen Parker, son. Code status: Full code. Smoking packs per day: 1 Smoking cigarettes per day: 20.0 Years smoked: 10 Smoking pack-years: 10.00 Smoking status: Former smoker Tobacco type: cigarettes Second hand tobacco smoke exposure: No Smoking end date: 09/17/1962 Alcohol intake: never Substance use: never Substance use type: does not use Additional living arrangements comments: Lives in [place] with his significant other. Comments At time of signature, agree with nursing past medical, surgical, social and family history. There is no relevant family history pertinent to the presenting complaint. Exam Narrative: GENERAL: This is a well-nourished, well-developed patient, in no apparent distress. HEAD: normocephalic, atraumatic. EYES: PERRL. Sclera clear/white. Vision is grossly intact. EARS: External ears normal NOSE: External nose normal NECK: Neck supple, non-tender without lymphadenopathy, masses or thyromegaly. CARDIOVASCULAR: Regular rate and rhythm without murmurs, gallops, or rubs. RESPIRATORY: Clear to auscultation. Breath sounds equal bilaterally. No wheezes, rales, or rhonc
== END 2022-01-04 11:32 | disposition home or self-care (01) ==
PROVIDERS: Emergency Provider Nurse Practitioner Family; PCP Family Medicine
DX: S91.332A Puncture wound without foreign body, left foot, initial encounter (principal); W45.0XXA Nail entering through skin, initial encounter; Z87.891 Personal history of nicotine dependence; M19.90 Unspecified osteoarthritis, unspecified site; I25.10 Atherosclerotic heart disease of native coronary artery without angina pectoris; E78.5 Hyperlipidemia, unspecified; I10 Essential (primary) hypertension; G47.33 Obstructive sleep apnea (adult) (pediatric); M16.12 Unilateral primary osteoarthritis, left hip; I73.9 Peripheral vascular disease, unspecified; E11.9 Type 2 diabetes mellitus without complications; Z98.49 Cataract extraction status, unspecified eye; Z96.1 Presence of intraocular lens; Z95.5 Presence of coronary angioplasty implant and graft; Z96.642 Presence of left artificial hip joint
CPT/HCPCS: 99213; G0463

== ENCOUNTER 2022-02-10 07:07 | Outpatient (CLI) | payer MEDICARE, SELFPAY ==
[2022-02-10 08:16] LABS: Cholesterol 163 mg/dL (0-200); HDL Direct 39 mg/dL; Triglycerides 190 mg/dL (<150)
[2022-02-10 08:26] LABS: LDL Cholesterol Direct 74 mg/dL
== END 2022-02-10 07:08 | disposition home or self-care (01) ==
PROVIDERS: PCP Family Medicine; Visit Provider Internal Medicine Cardiovascular Disease
DX: E78.5 Hyperlipidemia, unspecified (principal)
CPT/HCPCS: 36415; 80061

== ENCOUNTER 2022-11-06 09:33 | Outpatient (CLI) | payer MEDICARE, SELFPAY ==
--- NOTE | 2022-11-06 09:52 | ECHO_ITS ---
Patient Info Name: Shiva Parker Age: 82 years : 1940 Gender: Male Ht: 67 in Wt: 165 lbs BSA: 1.89 m2 HR: 69 bpm BP: 162 / 78 mmHg Technical Quality: Good Exam Date: 11/06/2022 10:04 AM Exam Location: [facility] Patient Status: Outpatient Admit Date: 11/06/2022 Staff Ordering Physician: Ananya Morales MD [employer]ry Supervisor: Adrianna Devlin RDCS Attending Provider: Ananya Morales MD Referring Physician: Andrew ZIMMER; Exam Type: CA echo doppler color flow Study Info Indications G47.33 - OBSTRUCTIVE SLEEP APNEA Complete two-dimensional, color flow and Doppler transthoracic echocardiogram is performed. Summary 1. Complete two-dimensional, color flow and Doppler transthoracic echocardiogram is performed. 2. Left ventricular chamber dimension is normal. 3. Left ventricular systolic function is normal, estimated at 55-60%. 4. There is mild concentric increased left ventricular wall thickness. 5. The left ventricular diastolic function is grade I diastolic dysfunction. 6. E/e' 5 is not elevated. 7. Global longitudinal strain is abnormal at -14.5%. 8. Left atrial chamber dimension is mildly enlarged. 9. There is mild aortic valve sclerosis. 10. There is mild aortic valve regurgitation. 11. There is trace mitral valve regurgitation. 12. No pulmonary hypertension, estimated pulmonary arterial systolic pressure is 22 mmHg. 13. There is trace pulmonic regurgitation. Left Ventricle E/e' 5 is not elevated. Global longitudinal strain is abnormal at -14.5%. Left ventricular chamber dimension is normal. Left ventricular systolic function is normal, estimated at 55-60%. There is mild concentric increased left ventricular wall thickness. The left ventricular diastolic function is grade I diastolic dysfunction. Right Ventricle Right ventricular systolic function is normal and with normal TAPSE 1.7 cm. Right ventricular chamber dimension is normal. Left Atria Left atrial chamber dimension is mildly enlarged. Right Atria Right atrial chamber dimension is normal. Aortic Valve The aortic valve is trileaflet. There is mild aortic valve sclerosis. There is no aortic valve stenosis. There is mild aortic valve regurgitation. Pulmonic Valve There is trace pulmonic regurgitation. Mitral Valve There is no mitral valve stenosis. There is trace mitral valve regurgitation. Tricuspid Valve There is no tricuspid valve regurgitation. No pulmonary hypertension, estimated pulmonary arterial systolic pressure is 22 mmHg. Pericardium/Pleural There is no pericardial effusion. Inferior Vena Cava Normal inferior vena cava with >50% collapse upon inspiration consistent with normal right atrial pressure, 5 mmHg. Aorta The aortic root size at the sinus of Valsalva is normal. Left Ventricular Outflow Tract Name Value Normal LVOT 2D LVOT Diameter 2.1 cm LVOT Doppler LVOT Peak Gradient 4 mmHg LVOT Mean Gradient 2 mmHg LVOT VTI 20 cm LVOT VTI/AV VTI Ratio 1.0 LVOT Stroke Volum
== END 2022-11-06 09:34 | disposition home or self-care (01) ==
PROVIDERS: PCP Family Medicine; Visit Provider Family Medicine
DX: I25.10 Atherosclerotic heart disease of native coronary artery without angina pectoris (principal); I08.0 Rheumatic disorders of both mitral and aortic valves; G47.33 Obstructive sleep apnea (adult) (pediatric)
CPT/HCPCS: 93306

== ENCOUNTER 2022-12-13 14:07 | Outpatient (CLI) | payer MEDICARE, SELFPAY ==
--- NOTE | ~2022-12-13 | XR_ITS ---
XR lumbar spine min 4V DATE: 12/13/2022 14:42 INDICATION: Chronic low back pain. No injury. TECHNIQUE: AP, lateral, coned lateral lumbosacral views COMPARISON: 10/17/2018 lumbar spine FINDINGS: Stable grade 1 anterolisthesis at L3-4 due to degenerative change at the apophyseal joints. There is severe degenerative disc disease at L4-5 and L5-S1, increased since 10/17/2018. No fracture or bone destruction or spondylolisthesis. The included lower thoracic and lumbar pedicles are intact. There is degenerative spurring throughout the lumbar spine. The sacroiliac joints are in tact. Status post left total hip arthroplasty. IMPRESSION: Severe degenerative disc disease at L4-5 and L5-S1, increased in severity since 10/17/2018 Degenerative changes apophyseal joints with associated stable grade 1 anterolisthesis at L3-4 Status post left total hip arthroplasty Reviewed, dictated and finalized at location B. IMPRESSION: Severe degenerative disc disease at L4-5 and L5-S1, increased in se verity since 10/17/2018 Degenerative changes apophyseal joints with associated stable grade 1 anterolis thesis at L3-4 Status post left total hip arthroplasty
[2022-12-13 15:24] LABS: Alanine Aminotransferase 25 U/L (6-50); Albumin Level 4.5 g/dL (3.5-5.1); Alkaline Phosphatase 71 U/L (38-126); Anion Gap 8 mmol/L (8-16); Aspartate Amino Transferase 27 U/L (17-59); Bilirubin,Total 0.6 mg/dL (0.2-1.3); Blood Urea Nitrogen 22 mg/dL (9-20); Carbon Dioxide 21 mmol/L (22-30); Chloride 106 mmol/L (98-107); Cholesterol 138 mg/dL (0-200); Estimated Glomerular Filt Rate 58; Glucose 177 mg/dL (65-110); HDL Direct 43 mg/dL; Potassium 4.4 mmol/L (3.4-5.0); Sodium 135 mmol/L (137-145); Triglycerides 217 mg/dL (<150)
[2022-12-13 15:35] LABS: LDL Cholesterol Direct 64 mg/dL
[2022-12-13 15:50] LABS: Iron 69 ug/dL (49-181)
[2022-12-13 15:54] LABS: Prostate Specific Antigen 3.2 ng/mL (< OR = 4.0)
[2022-12-13 16:00] LABS: Percent Iron Saturation 22 % (20-50)
[2022-12-13 16:30] LABS: Folic Acid 16.5 ng/mL (2.76->20)
[2022-12-13 16:49] LABS: Hemoglobin A1C 6.4 % (<5.7)
[2022-12-13 20:43] LABS: Hematocrit 40.1 % (42.0-52.0); Hemoglobin 14.1 g/dL (14.0-18.0); Mean Corpuscular HGB Conc 35.2 g/dl (32-36); Mean Corpuscular Volume 96.6 fl (80-100); Mean Platelet Volume 9.7 fl (7.4-10.4); Platelet Count Result 155 k/mm3 (150-375); Red Blood Count 4.15 M/mm3 (4.6-6.20); Red Cell Distribution Width 12.7 % (11.5-14.5); White Blood Count 6.2 K/mm3 (4.5-10.0)
== END 2022-12-13 14:08 | disposition home or self-care (01) ==
PROVIDERS: PCP Family Medicine; Visit Provider Family Medicine
DX: M51.36 Other intervertebral disc degeneration, lumbar region (principal); M51.37 Other intervertebral disc degeneration, lumbosacral region; D64.9 Anemia, unspecified; E11.9 Type 2 diabetes mellitus without complications; E03.9 Hypothyroidism, unspecified; Z12.5 Encounter for screening for malignant neoplasm of prostate; E78.2 Mixed hyperlipidemia
CPT/HCPCS: 36415; 72110; 80053; 80061; 82607; 82728; 82746; 83036; 83540; 83550; 84153; 84443; 85027; G0103

== ENCOUNTER 2022-12-19 08:00 | Outpatient (NON) | payer MEDICARE, SELFPAY | END 2022-12-19 08:01 | disposition home or self-care (01) | PROVIDERS: PCP Family Medicine; Visit Provider Nurse Practitioner | DX: C44.519 Basal cell carcinoma of skin of other part of trunk (principal); L82.0 Inflamed seborrheic keratosis | CPT/HCPCS: 88305 ==

== ENCOUNTER 2022-12-22 10:26 | Outpatient (CLI) | payer MEDICARE, SELFPAY ==
--- NOTE | ~2022-12-22 | MR_ITS ---
EXAMINATION: MR lumbar spine wo con DATE: 12/22/2022 11:11 INDICATION: Low back pain. TECHNIQUE: Magnetic resonance imaging (MRI) of the lumbar spine was performed without intravenous con trast. Sequences included sagittal T2-weighted FSE, sagittal T2-weighted FS FSE, sagittal T1-weighted FSE, and axial T2-weighted FSE. COMPARISON: Lumbar spine radiographs dated 12/13/2022 FINDINGS: Transitional L5 segment partially sacralized on both the left and right. 8 degree lower lumbar levocu rvature. Straightening of the normal lumbar lordosis. 2 mm retrolisthesis L4 on L5 and 4 mm retrolist hesis L5 on S1. Vertebral body heights are normal. Moderate to severe right-sided predominant disc he ight loss at L4-L5 and moderate left-sided predominant disc height loss at L5-S1. There is associated fibrovascular degenerative endplate changes at both levels. Mild disc height loss at T11-T12 and L1- L2 through L3-L4. Moderate disc height loss at L5-S1. The conus medullaris terminates at L1. There is normal signal in the caudal spinal cord. There is ankylosis across the cephalad aspect of the left s acroiliac joint. Paravertebral soft tissues are unremarkable. The following disc levels are specifica lly discussed: T12-L1: The disc does not extend beyond the endplate margin. There is mild bilateral facet joint oste oarthritis. There is no neural foraminal stenosis. There is no central canal stenosis. L1-L2: Disc is bulging. There is mild to moderate bilateral facet joint osteoarthritis. There is mild bilateral neural foraminal stenosis. There is mild central canal stenosis. L2-L3: Disc is mildly bulging. There is mild to moderate bilateral facet joint osteoarthritis. There is mild bilateral neural foraminal stenosis. There is mild central canal stenosis. L3-L4: Disc is mildly bulging with superimposed annular fissures at disc protrusions at the bilateral foraminal zones. There is moderate bilateral facet joint osteoarthritis. There is mild to moderate b ilateral neural foraminal stenosis. There is mild central canal stenosis. There is also narrowing of the left and right lateral recesses with mild mass effect upon the traversing bilateral L4 nerve root s. L4-L5: Annular fissure and disc extrusion extending from foraminal zone to foraminal zone with disc m aterial extending couple millimeters caudal to the level of the superior endplate of L5. There is mil d to moderate bilateral facet joint osteoarthritis. There is moderate bilateral neural foraminal sten osis. There is mild central canal stenosis. L5-S1: Disc is bulging with annular fissure and superimposed small central disc extrusion with disc m aterial extending up to 4 mm caudal to the level of the superior endplate of S1. There is severe bila teral facet joint osteoarthritis. There is bilaterally moderate neural foraminal and moderate to gabe re extra foraminal stenosis with mild flattening the bilateral traversing L5 nerve roots. There is no central canal stenosis. IMPRESSION: 1. A degree lower lumbar levocurvature with moderate to severe spondylosis. Mild spondylosis in the m ore cephalad lumbar and lower thoracic spine. Reviewed, dictated and finalized at location A. IMPRESSION: 1. A degree lower lumbar levocurvature with moderate to severe spondylosis. Mil d spondylosis in the more cephalad lumbar and lower thoracic spine.
== END 2022-12-22 10:27 | disposition home or self-care (01) ==
PROVIDERS: PCP Family Medicine; Visit Provider Family Medicine
DX: M47.26 Other spondylosis with radiculopathy, lumbar region (principal)
CPT/HCPCS: 72148

== ENCOUNTER 2022-12-26 09:55 | Outpatient (NON) | payer MEDICARE, SELFPAY | END 2022-12-26 09:56 | disposition home or self-care (01) | LOC: ANHLAB 12-27 09:58 | PROVIDERS: PCP Family Medicine; Visit Provider Nurse Practitioner | DX: C44.519 Basal cell carcinoma of skin of other part of trunk (principal) | CPT/HCPCS: 88304 ==

== ENCOUNTER 2023-03-13 12:24 | Emergency (ER) | payer MEDICARE, SELFPAY ==
[2023-03-13 12:29] VITALS: BP 167/72; PULSE 70; RESP 18; TEMP 36.9; O2SAT 97
--- NOTE | 2023-03-13 14:11 | ED.UPPEXIN ---
HPI - Extremity Injury (Upper) General Chief Complaint: Extremity Injury, Upper Stated Complaint: finger pain Time Seen by Provider: 03/13/23 13:13 Source: patient and RN notes reviewed Mode of arrival: ambulatory Limitations: no limitations History of Present Illness HPI narrative: This is an 82 year old male who presents for evaluation of left middle finger pain . He states he notices pain and pus pocket along his finger nail on his middle finger today. He denies any injury. He does report borderline DM. Last tetanus 2021 Related Data Home Medications Medication Instructions Recorded Confirmed omega [id number] oil 1,000 mg 1 cap PO DAILY 08/17/22 03/02/23 (120 mg-180 mg) capsule (Fish Oil) Allergies Allergy/AdvReac Type Severity Reaction Status Date / Time No Known Allergies Allergy Verified 03/13/23 12:31 Review of Systems Review of Systems: All systems reviewed & are unremarkable except as noted in HPI and below PMFSH Past Medical History Medical History Arthritis BMI 25.0-25.9,adult Cardiac arrhythmia Coronary artery disease Erectile dysfunction History of COVID-19 Hyperlipidemia Hypertension Lumbar and sacral arthritis Obstructive sleep apnea (11/2012) Osteoarthritis of left hip Peripheral arterial disease Type 2 diabetes mellitus Surgical History Surgical History History of cataract extraction with lens replacement History of colonoscopy History of coronary artery stent placement (2013) History of left hip replacement (10/10/21) History of left inguinal hernia repair (2015) History of total left hip arthroplasty SABINO on 10/10/2021 - Anterior approach Family History Family History Father Hypertension Sibling Hypertension Other Family history of cardiovascular disease Social History Social History Social History: Surrogate decision maker: Jensen Parker, son. Code status: Full code. Smoking packs per day: 1 Smoking cigarettes per day: 20.0 Years smoked: 10 Smoking pack-years: 10.00 Smoking status: Former smoker Tobacco type: cigarettes Second hand tobacco smoke exposure: No Smoking end date: 09/17/1962 Alcohol intake: never Substance use: never Substance use type: does not use Lack of Transportation: No Lack of Food: Never True Current Housing: I Have Housing Concerned About Future Housing: No Difficulty Paying Gas/Electric Bills: No Difficulty Paying for Meds: No Currently Unemployed: No Education: High School Diploma/GED Difficulty w/ Childcare or Family Care: No Living arrangements: alone Additional living arrangements comments: Lives in [place] with his significant other. Occupation/Education: retired Exam Const: General: no acute distress and alert Nutritional Appearance: well nourished Orientation/consciousness: patient oriented x3 HENMT: Head: normal to inspection Eyes: EOM: EOMs intact bilaterally Resp: Effort & Inspection: normal respiratory effort Neuro: General: patient oriented x3, moves all extremities and CN's II-XI intact bilaterally Extrem: Other: left middle finger - FROM . there is pus pocket along radial side nail of 3rd finger, mild erythem along nail bed. Psych: Mental Status: mental status grossly normal Affect: normal affect Attitude: cooperative Course Vital Signs Vital signs: Vital Signs Temperature 98.4 F 03/13/23 12:29 Pulse Rate 70 03/13/23 12:29 Respiratory Rate 18 03/13/23 12:29 Blood Pressure 167/72 H 03/13/23 12:29 Pulse Oximetry 97 03/13/23 12:29 Oxygen Delivery Room Air 03/13/23 12:29 Temperature 98.4 F 03/13/23 12:29 Pulse Rate 70 03/13/23 12:29 Respiratory Rate 18 03/13/23 12:29 Blood Pressure 167/72 H
== END 2023-03-13 14:32 | disposition home or self-care (01) ==
PROVIDERS: Emergency Provider General Practice; PCP Family Medicine
DX: L03.012 Cellulitis of left finger (principal); E78.5 Hyperlipidemia, unspecified; I10 Essential (primary) hypertension; E11.9 Type 2 diabetes mellitus without complications; I25.10 Atherosclerotic heart disease of native coronary artery without angina pectoris; Z87.891 Personal history of nicotine dependence
CPT/HCPCS: 26010; 99283

== ENCOUNTER 2023-05-18 07:15 | Outpatient (CLI) | payer MEDICARE, SELFPAY ==
[2023-05-18 08:11] LABS: Sodium Urine Random 141 meq/L
[2023-05-18 08:21] LABS: Hemoglobin A1C 6.5 % (<5.7)
[2023-05-18 08:24] LABS: Alanine Aminotransferase 23 U/L (6-50); Albumin Level 4.4 g/dL (3.5-5.1); Alkaline Phosphatase 73 U/L (38-126); Anion Gap 8 mmol/L (8-16); Aspartate Amino Transferase 28 U/L (17-59); Bilirubin,Total 0.7 mg/dL (0.2-1.3); Blood Urea Nitrogen 21 mg/dL (9-20); Calcium 9.1 mg/dL (8.4-10.2); Carbon Dioxide 26 mmol/L (22-30); Chloride 104 mmol/L (98-107); Cholesterol 143 mg/dL (0-200); Estimated Glomerular Filt Rate > 60; Glucose 142 mg/dL (65-110); HDL Direct 42 mg/dL; Potassium 4.4 mmol/L (3.4-5.0); Sodium 138 mmol/L (137-145); Triglycerides 152 mg/dL (<150); Uric Acid 6.6 mg/dL (3.5-8.5)
[2023-05-18 08:32] LABS: Erythrocyte Sedimentation Rate 14 mm/hr (0-20)
[2023-05-18 08:35] LABS: LDL Cholesterol Direct 72 mg/dL
[2023-05-21 19:34] LABS: Osmolality, Urine 709 mOsm/kg (50-1200)
== END 2023-05-18 07:16 | disposition home or self-care (01) ==
PROVIDERS: PCP Family Medicine; Visit Provider Family Medicine
DX: M25.579 Pain in unspecified ankle and joints of unspecified foot (principal); E11.9 Type 2 diabetes mellitus without complications; E78.2 Mixed hyperlipidemia; E87.1 Hypo-osmolality and hyponatremia; M25.50 Pain in unspecified joint
CPT/HCPCS: 36415; 80053; 80061; 83036; 83930; 83935; 84300; 84550; 85652

== ENCOUNTER 2023-12-05 10:42 | Outpatient (CLI) | payer MEDICARE, SELFPAY ==
--- NOTE | ~2023-12-05 | XR_ITS ---
Lumbosacral Spine: AP, oblique, and lateral views Clinical History: Pain Findings: The normal lordotic curve is maintained. No fracture or sublocation seen. There is moderate degenerative disc narrowing at L4-L5 and L5-S1. There is advanced facet arthropathy from L4 through S1. The sacroiliac joints are normally outlined. Impression: Moderate to advanced degenerative spondylosis, especially the lower lumbar spine, as detailed above. Reviewed, dictated and finalized at location . Impression: Moderate to advanced degenerative spondylosis, especially the lower lumbar spin e, as detailed above.
--- NOTE | ~2023-12-05 | XR_ITS ---
AP and lateral views of the left hip Clinical history: Pain Findings: No acute fracture or dislocation is seen. Left hip arthroplasty in place, without evidence of hardware complication. Soft tissues are unremarkable. Impression: No acute abnormality is seen. Left hip arthroplasty. Reviewed, dictated and finalized at location . Impression: No acute abnormality is seen. Left hip arthroplasty.
== END 2023-12-05 10:43 | disposition home or self-care (01) ==
LOC: ANHIMG 10:44
PROVIDERS: PCP Family Medicine; Visit Provider Family Medicine
DX: M47.896 Other spondylosis, lumbar region (principal); M47.897 Other spondylosis, lumbosacral region; M25.552 Pain in left hip; Z96.642 Presence of left artificial hip joint
CPT/HCPCS: 72110; 73502

== ENCOUNTER 2024-03-07 14:50 | Outpatient (CLI) | payer MEDICARE, SELFPAY ==
--- NOTE | ~2024-03-07 | US_ITS ---
EXAMINATION: US carotid duplex BI DATE: 03/07/2024 15:35 INDICATION: Transient cerebral ischemic attack, unspecified. TECHNIQUE: Grayscale, color Doppler, and pulsed Doppler images of the cervical carotid arteries were obtained. The degree of vessel stenosis is placed in one of the following categories: normal, <50%, 5 0-69%, >=70% but less than near-occlusion, near-occlusion, or total occlusion. Note that percent sten osis relative to normal distal artery lumen diameter is indirectly measured from velocity measurement s as described by Vladislav, et al. Radiology 2003; [id number]. COMPARISON: None. FINDINGS: RIGHT: The right common carotid artery (CCA) peak systolic velocity (PSV) is 76 cm/s. The right internal car otid artery (ICA) PSV is 162 cm/s. The right ICA end-diastolic velocity (EDV) is 33 cm/s. The right I CA/CCA PSV ratio is 2.1. Grayscale and color Doppler images yield an estimate of <50% diameter reduct ion from plaque in the ICA. There is antegrade flow in the right vertebral artery. LEFT: The left CCA PSV is 111 cm/s. The left ICA PSV is 93 cm/s. The left ICA EDV is 24 cm/s. The left ICA/ CCA PSV ratio is 0.8. Grayscale and color Doppler images yield an estimate of <50% diameter reduction from plaque in the ICA. There is antegrade flow in the left vertebral artery. IMPRESSION: 1. <50% stenosis in the right internal carotid artery. 2. <50% stenosis in the left internal carotid artery. Reviewed, dictated and finalized at location E.
== END 2024-03-07 14:51 | disposition home or self-care (01) ==
PROVIDERS: PCP Family Medicine; Visit Provider Internal Medicine Cardiovascular Disease
DX: I65.23 Occlusion and stenosis of bilateral carotid arteries (principal)
CPT/HCPCS: 93880

== ENCOUNTER 2024-03-13 06:52 | Outpatient (CLI) | payer MEDICARE, SELFPAY ==
[2024-03-13 07:59] LABS: Alanine Aminotransferase 20 U/L (6-50); Albumin Level 4.3 g/dL (3.5-5.1); Alkaline Phosphatase 66 U/L (38-126); Anion Gap 7 mmol/L (4-12); Aspartate Amino Transferase 26 U/L (17-59); Bilirubin,Total 0.8 mg/dL (0.2-1.3); Blood Urea Nitrogen 23 mg/dL (9-20); Calcium 9.2 mg/dL (8.4-10.2); Carbon Dioxide 24 mmol/L (22-30); Chloride 107 mmol/L (98-107); Cholesterol 140 mg/dL (0-200); Estimated Glomerular Filt Rate > 60; Glucose 144 mg/dL (65-110); HDL Direct 49 mg/dL; Sodium 138 mmol/L (137-145); Triglycerides 159 mg/dL (<150)
[2024-03-13 08:10] LABS: Hemoglobin A1C 6.2 % (<5.7); LDL Cholesterol Direct 75 mg/dL
== END 2024-03-13 06:53 | disposition home or self-care (01) ==
PROVIDERS: PCP Family Medicine; Visit Provider Family Medicine
DX: E78.2 Mixed hyperlipidemia (principal); E11.9 Type 2 diabetes mellitus without complications
CPT/HCPCS: 36415; 80053; 80061; 83036

== ENCOUNTER 2024-08-12 12:56 | Emergency (ER) | payer MEDICARE, SELFPAY ==
--- NOTE | ~2024-08-12 | XR_ITS ---
EXAMINATION: XR_CERV2-3V_CR DATE: 08/12/2024 13:36 INDICATION: Left neck pain. TECHNIQUE: 3 views of cervical spine were obtained. COMPARISON: None. FINDINGS: There is 9 degrees levocurvature of cervical spine. There is kyphosis of cervical spine. Ve rtebral body heights are normal. There is mildly decreased disc height at C3-C4 and C4-C5, severely d ecreased disc height at C5-C6 and C6-C7, and moderately decreased disc height at C7-T1. There is mult ilevel facet joint osteoarthritis, severe on the left at C3-C4 and C4-C5 and bilaterally at C7-T1. Th ere is mild central canal stenosis at C5-C6 and C6-C7. No prevertebral soft tissue swelling. IMPRESSION: 1. Severe cervical spondylosis. Reviewed, dictated and finalized at location A. X ARCHITECT
[2024-08-12 13:06] VITALS: BP 178/81; PULSE 68; RESP 18; TEMP 37; O2SAT 98
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
== END 2024-08-12 14:13 | disposition home or self-care (01) ==
PROVIDERS: Emergency Provider Registered Nurse; PCP Family Medicine
DX: M54.2 Cervicalgia (principal); I10 Essential (primary) hypertension; E78.5 Hyperlipidemia, unspecified; E11.9 Type 2 diabetes mellitus without complications; I25.10 Atherosclerotic heart disease of native coronary artery without angina pectoris; Z87.891 Personal history of nicotine dependence
CPT/HCPCS: 72040; 99213; G0463

== ENCOUNTER 2025-03-12 07:56 | Outpatient (CLI) | payer MEDICARE, SELFPAY ==
[2025-03-12 08:45] LABS: Basophils Percent Auto 0.6 % (0.2-1.2); Eosinophils Absolute Auto 0.4 K/mm3 (0-0.3); Eosinophils Percent Auto 6.4 % (0-4.4); Hemoglobin 14.4 g/dL (14.0-18.0); Immature Granulocyte Absolute 0.03 K/mm3 (0.00-0.031); Immature Granulocyte Percent A 0.5 % (0-0.5); Immature Platelet Fraction Pct 2.3 % (0.9-11.2); Lymphocytes Absolute Auto 1.78 K/mm3 (0.9-3.2); Mean Corpuscular HGB Conc 35.1 g/dl (32-36); Mean Corpuscular Hemoglobin 33.3 pg (26-34); Mean Corpuscular Volume 94.9 fl (80-100); Mean Platelet Volume 9.5 fl (7.4-10.4); Monocytes Absolute Auto 0.5 K/mm3 (0.1-0.6); Monocytes Percent Auto 7.2 % (2.6-8.5); Neutrophils Absolute Auto 3.6 K/mm3 (1.3-6.7); Neutrophils Percent Auto 57.3 % (45.5-73.1); Platelet Count Result 141 k/mm3 (150-375); Red Blood Count 4.32 M/mm3 (4.6-6.20); Red Cell Distribution Width 12.2 % (11.5-14.5); White Blood Count 6.4 K/mm3 (4.5-10.0)
[2025-03-12 08:58] LABS: Alanine Aminotransferase 17 U/L (6-50); Albumin Level 4.2 g/dL (3.5-5.1); Alkaline Phosphatase 62 U/L (38-126); Anion Gap 9 mmol/L (4-12); Aspartate Amino Transferase 26 U/L (17-59); Bilirubin,Total 0.7 mg/dL (0.2-1.3); Blood Urea Nitrogen 20 mg/dL (9-20); Calcium 9.2 mg/dL (8.4-10.2); Carbon Dioxide 25 mmol/L (22-30); Chloride 105 mmol/L (98-107); Cholesterol 154 mg/dL (0-200); Estimated Glomerular Filt Rate > 60; Glucose 155 mg/dL (65-110); HDL Direct 47 mg/dL; Potassium 4.2 mmol/L (3.4-5.0); Sodium 139 mmol/L (137-145); Total Protein 6.9 g/dL (6.3-8.2); Triglycerides 129 mg/dL (<150)
[2025-03-12 09:09] LABS: LDL Cholesterol Direct 69 mg/dL
[2025-03-12 09:17] LABS: Hemoglobin A1C. 6.6 % (<5.7)
[2025-03-12 09:41] LABS: Creatinine Urine 118.8 mg/dL
[2025-03-12 10:00] LABS: MALB Creatinine Ratio 220.5 mg/g (0-30); Microalbumin Urine Random 261.9 mg/L (0-16.7)
== END 2025-03-12 07:57 | disposition home or self-care (01) ==
LOC: ANHLAB 07:57
PROVIDERS: PCP Family Medicine; Visit Provider Family Medicine
DX: D64.9 Anemia, unspecified (principal); E11.9 Type 2 diabetes mellitus without complications; E78.2 Mixed hyperlipidemia
CPT/HCPCS: 36415; 80053; 80061; 82043; 83036; 85025; 85055